=== PATIENT | female | born 1990 | race Caucasian/White ===

== ENCOUNTER 2017-07-18 18:28 | Emergency (ER) | payer BC ==
[~2017-07-18] VITALS: Ht 162.6 cm; Wt 40.0 kg
[2017-07-18 19:41] LABS: URINE BLOOD DIPSTICK NEGATIVE (NEGATIVE); URINE COLOR YELLOW; URINE GLUCOSE - DIPSTICK NEGATIVE (NEGATIVE); URINE KETONE 15 mg/dL (NEGATIVE); URINE LEUK ESTERASE NEGATIVE (NEGATIVE); URINE NITRITE - DIPSTICK NEGATIVE (Negative); URINE PROTEIN - DIPSTICK TRACE mg/dL (NEG-TRACE); URINE SPECIFIC GRAVITY 1.025
[2017-07-18 19:43] LABS: HEMATOCRIT 36.5 % (37.0-47.0); HEMOGLOBIN 12.3 g/dl (12.0-16.0); IMMATURE GRANULOCYTES 0.4 % (0.0-1.0); MEAN CELL VOLUME 84.9 fL CALC (80.0-100.0); MEAN CORPUSCULAR HGB 28.6 pG CALC (26.0-32.0); MEAN CORPUSCULAR HGB CONC 33.7 g/L CALC (32.0-36.0); NEUT# 5.01 thou/uL (2.00-7.15); RED BLOOD COUNT 4.3 mill/uL (4.20-5.60); RED CELL DISTRI WIDTH 14.1 % (11.5-15.5)
[2017-07-18 19:45] LABS: ALBUMIN 4.8 g/dL (3.2-5.0); ALKALINE PHOSPHATASE 61 u/l (38-126); ANION GAP 16 (6-22 (CALC)); BILIRUBIN, TOTAL 0.9 mg/dL (0.0-1.4); BUN 20 mg/dL (7-17); BUN/CREATININE RATIO 37 (12-20 (CALC)); CARBON DIOXIDE 25 mmol/l (22-30); CHLORIDE 103 mmol/l (95-108); CREATININE 0.5 mg/dL (0.5-1.0); GFR > 60 ML/MIN (>=60 (CALC)); GFR FOR AFR.AMER. > 60 ML/MIN (>=60 (CALC)); POTASSIUM 3.8 mmol/l (3.5-5.1); SGOT/AST 19 u/l (14-36); SGPT/ALT 25 u/l (9-52); SODIUM 139 mmol/l (137-146); TOTAL PROTEIN 7.5 g/dL (6.3-8.2)
[2017-07-18 19:46] LABS: URINE BILIRUBIN - DIPSTICK SMALL (NEGATIVE); URINE CLARITY CLEAR
[2017-07-18 21:30] VITALS: BP 108/60
[2017-07-18] MEDS ORDERED: ZOFRAN ODT4 MG PO (21:36)
[2017-07-18] MEDS ORDERED: FIORICET PO (21:36)
== END 2017-07-18 22:00 | disposition home or self-care (01) | DRG 103 ==
LOC: ED 18:28
PROVIDERS: Emergency Medicine
DX: R51 Headache (principal); B34.9 Viral infection, unspecified; R11.10 Vomiting, unspecified; R10.30 Lower abdominal pain, unspecified
CPT/HCPCS: Q9967

== ENCOUNTER 2017-07-21 12:53 | Observation (INO) | payer BC ==
[~2017-07-21] VITALS: Ht 162.6 cm; Wt 40.6 kg
[~2017-07-21 12:53] MED LIST: FIORICET PO; ZOFRAN ODT4 MG PO
[2017-07-21 14:12] LABS: URINE BILIRUBIN - DIPSTICK NEGATIVE (NEGATIVE); URINE BLOOD DIPSTICK NEGATIVE (NEGATIVE); URINE CLARITY CLEAR; URINE COLOR YELLOW; URINE GLUCOSE - DIPSTICK NEGATIVE (NEGATIVE); URINE KETONE NEGATIVE (NEGATIVE); URINE LEUK ESTERASE NEGATIVE (NEGATIVE); URINE NITRITE - DIPSTICK NEGATIVE (Negative); URINE PROTEIN - DIPSTICK NEGATIVE (NEG-TRACE); URINE SPECIFIC GRAVITY 1.015; URINE UROBILINOGEN - DIPSTICK 0.2 E.U./dL (0.2)
[2017-07-21 14:40] LABS: HEMOGLOBIN 11.4 g/dl (12.0-16.0); IMMATURE GRANULOCYTES 0.2 % (0.0-1.0); MEAN CORPUSCULAR HGB 29.2 pG CALC (26.0-32.0); MEAN CORPUSCULAR HGB CONC 33.5 g/L CALC (32.0-36.0); NEUT# 5.52 thou/uL (2.00-7.15); RED BLOOD COUNT 3.91 mill/uL (4.20-5.60); RED CELL DISTRI WIDTH 14.6 % (11.5-15.5)
[2017-07-21 14:51] LABS: ALBUMIN 4.4 g/dL (3.2-5.0); ALKALINE PHOSPHATASE 53 u/l (38-126); ANION GAP 16 (6-22 (CALC)); BILIRUBIN, TOTAL 0.2 mg/dL (0.0-1.4); BUN 17 mg/dL (7-17); BUN/CREATININE RATIO 33 (12-20 (CALC)); CARBON DIOXIDE 25 mmol/l (22-30); CHLORIDE 108 mmol/l (95-108); CREATININE 0.5 mg/dL (0.5-1.0); GFR > 60 ML/MIN (>=60 (CALC)); GFR FOR AFR.AMER. > 60 ML/MIN (>=60 (CALC)); LIPASE 340 u/l (23-300); SGOT/AST 11 u/l (14-36); SGPT/ALT 20 u/l (9-52); SODIUM 144 mmol/l (137-146); TOTAL PROTEIN 6.5 g/dL (6.3-8.2)
[2017-07-21] MEDS ORDERED: VISTARIL 50MG C50 MG PO (16:14)
[2017-07-21 17:01] LABS: BARBITURATES NEGATIVE (NEGATIVE); COCAINE NEGATIVE (NEGATIVE); METHADONE NEGATIVE (NEGATIVE); OXCYCODONE NEGATIVE (NEGATIVE); TETRAHYDROCANNABIONOL POSITIVE (NEGATIVE); TRICYLIC ANTIDEPRESSANTS NEGATIVE (NEGATIVE)
[2017-07-21] MEDS ORDERED: CYMBALTA60 MG PO (17:48)
[2017-07-21] MEDS ORDERED: GABAPENTIN100 MG PO (17:49)
[2017-07-21] MEDS ORDERED: ADDERALL30 MG PO (17:49)
[2017-07-21 18:10] VITALS: BP 105/69
[2017-07-21 19:10] VITALS: BP 104/70
[2017-07-22] VITALS: BP 103/68
[2017-07-22 04:00] VITALS: BP 101/74
[2017-07-22 05:26] LABS: CHOLESTEROL HDL RATIO 2.6 (<4.4 (CALC))
[2017-07-22 07:45] VITALS: BP 96/67
[2017-07-22 16:35] VITALS: BP 127/80
[2017-07-22 19:10] VITALS: BP 112/68
[2017-07-22 23:55] VITALS: BP 94/61
[2017-07-23 05:10] VITALS: BP 99/63
[2017-07-23 05:23] LABS: HEMATOCRIT 35.8 % (37.0-47.0); HEMOGLOBIN 12.1 g/dl (12.0-16.0); MEAN CELL VOLUME 85.2 fL CALC (80.0-100.0); MEAN CORPUSCULAR HGB 28.8 pG CALC (26.0-32.0); MEAN CORPUSCULAR HGB CONC 33.8 g/L CALC (32.0-36.0); RED BLOOD COUNT 4.2 mill/uL (4.20-5.60); RED CELL DISTRI WIDTH 14.5 % (11.5-15.5)
[2017-07-23 05:52] LABS: ANION GAP 17 (6-22 (CALC)); BUN 18 mg/dL (7-17); BUN/CREATININE RATIO 30 (12-20 (CALC)); CARBON DIOXIDE 24 mmol/l (22-30); CHLORIDE 105 mmol/l (95-108); CREATININE 0.6 mg/dL (0.5-1.0); GFR > 60 ML/MIN (>=60 (CALC)); GFR FOR AFR.AMER. > 60 ML/MIN (>=60 (CALC)); MAGNESIUM 2.2 mg/dL (1.6-2.3); POTASSIUM 4.3 mmol/l (3.5-5.1); SODIUM 142 mmol/l (137-146)
[2017-07-23 07:23] VITALS: BP 98/66
[2017-07-23] MEDS ORDERED: LOPRESSOR25 MG PO (10:35)
[2017-07-23 11:07] VITALS: BP 98/61
== END 2017-07-23 12:00 | disposition home or self-care (01) | DRG 310 ==
LOC: ED 12:53 → ED-I 13:58 → ED 17:15 → MS2 17:16 → UNDODEPER 18:12 → MS2 07-23 12:00
PROVIDERS: Family Medicine; Nurse Practitioner Family; ADMIT Internal Medicine; ATTEND Internal Medicine
DX: R00.2 Palpitations (principal); R07.89 Other chest pain; F12.90 Cannabis use, unspecified, uncomplicated; F17.210 Nicotine dependence, cigarettes, uncomplicated; F41.9 Anxiety disorder, unspecified; F43.10 Post-traumatic stress disorder, unspecified; F90.9 Attention-deficit hyperactivity disorder, unspecified type; R94.31 Abnormal electrocardiogram [ECG] [EKG]; Z89.612 Acquired absence of left leg above knee
CPT/HCPCS: G0378

== ENCOUNTER 2017-10-24 12:49 | Emergency (ER) | payer BC ==
[~2017-10-24] VITALS: Ht 162.6 cm; Wt 42.0 kg
[~2017-10-24 12:49] MED LIST changes: +ADDERALL30 MG PO; +CYMBALTA60 MG PO; +GABAPENTIN100 MG PO; +LOPRESSOR25 MG PO; +VISTARIL 50MG C50 MG PO
[2017-10-24 13:58] LABS: HEMATOCRIT 36.7 % (37.0-47.0); HEMOGLOBIN 12.2 g/dl (12.0-16.0); IMMATURE GRANULOCYTES 0.4 % (0.0-1.0); MEAN CELL VOLUME 91.5 fL CALC (80.0-100.0); MEAN CORPUSCULAR HGB 30.4 pG CALC (26.0-32.0); MEAN CORPUSCULAR HGB CONC 33.2 g/L CALC (32.0-36.0); NEUT# 2.62 thou/uL (2.00-7.15); RED BLOOD COUNT 4.01 mill/uL (4.20-5.60)
[2017-10-24 14:04] LABS: URINE BILIRUBIN - DIPSTICK NEGATIVE (NEGATIVE); URINE BLOOD DIPSTICK NEGATIVE (NEGATIVE); URINE COLOR YELLOW; URINE GLUCOSE - DIPSTICK NEGATIVE (NEGATIVE); URINE KETONE NEGATIVE (NEGATIVE); URINE LEUK ESTERASE NEGATIVE (NEGATIVE); URINE NITRITE - DIPSTICK NEGATIVE (Negative); URINE PROTEIN - DIPSTICK NEGATIVE (NEG-TRACE); URINE UROBILINOGEN - DIPSTICK 0.2 E.U./dL (0.2)
[2017-10-24 14:06] LABS: URINE CLARITY CLOUDY
[2017-10-24 14:08] LABS: BARBITURATES NEGATIVE (NEGATIVE); COCAINE NEGATIVE (NEGATIVE); METHADONE NEGATIVE (NEGATIVE); OXCYCODONE POSITIVE (NEGATIVE); TETRAHYDROCANNABIONOL POSITIVE (NEGATIVE); TRICYLIC ANTIDEPRESSANTS NEGATIVE (NEGATIVE)
[2017-10-24 14:11] LABS: ALBUMIN 4.2 g/dL (3.2-5.0); ALKALINE PHOSPHATASE 41 u/l (38-126); ANION GAP 9 (6-22 (CALC)); BILIRUBIN, TOTAL 0.5 mg/dL (0.0-1.4); BUN 18 mg/dL (7-17); BUN/CREATININE RATIO 45 (12-20 (CALC)); CARBON DIOXIDE 29 mmol/l (22-30); CHLORIDE 104 mmol/l (95-108); CREATININE 0.4 mg/dL (0.5-1.0); GFR > 60 ML/MIN (>=60 (CALC)); GFR FOR AFR.AMER. > 60 ML/MIN (>=60 (CALC)); POTASSIUM 4.2 mmol/l (3.5-5.1); SGPT/ALT 35 u/l (9-52); SODIUM 138 mmol/l (137-146)
[2017-10-24 14:15] LABS: SGOT/AST 20 u/l (14-36)
[2017-10-24 14:42] LABS: TSH, 3RD GENERATION 0.89 uIU/mL (0.47 - 4.68)
[2017-10-24] MEDS ORDERED: CIPRO HC PO (18:46)
[2017-10-24] MEDS ORDERED: PYRIDIUM200 MG PO (18:46)
[2017-10-24 19:02] VITALS: BP 101/66
== END 2017-10-24 19:09 | disposition home or self-care (01) | DRG 392 ==
LOC: ED 12:49
PROVIDERS: Emergency Medicine
DX: R10.30 Lower abdominal pain, unspecified (principal); F17.210 Nicotine dependence, cigarettes, uncomplicated; R53.1 Weakness; R51 Headache
CPT/HCPCS: Q9967

== ENCOUNTER 2017-11-19 13:39 | Emergency (ER) | payer BC ==
[~2017-11-19] VITALS: Ht 162.6 cm; Wt 44.0 kg
[~2017-11-19 13:39] MED LIST changes: +CIPRO HC PO; +PYRIDIUM200 MG PO
[2017-11-19] MEDS ORDERED: MUPIROCIN21 TOP (14:06)
[2017-11-19] MEDS ORDERED: DOXYCYCLINE100 MG PO (14:06)
[2017-11-19 14:10] VITALS: BP 107/74
== END 2017-11-19 14:20 | disposition home or self-care (01) | DRG 607 ==
LOC: ED 13:39
PROC: 0H9AXZZ Drainage of Inguinal Skin, External Approach (ICD-10-PCS; principal; 2017-11-19)
DX: L73.9 Follicular disorder, unspecified (principal); F32.9 Major depressive disorder, single episode, unspecified; E07.9 Disorder of thyroid, unspecified; F17.210 Nicotine dependence, cigarettes, uncomplicated; B95.62 Methicillin resistant Staphylococcus aureus infection as the cause of diseases classified elsewhere

== ENCOUNTER 2017-12-23 15:45 | Emergency (ER) | payer OTHER ==
[~2017-12-23] VITALS: Ht 162.6 cm; Wt 45.5 kg
[~2017-12-23 15:45] MED LIST changes: +DOXYCYCLINE100 MG PO; +MUPIROCIN21 TOP
[2017-12-23 16:44] LABS: HEMATOCRIT 35.9 % (37.0-47.0); HEMOGLOBIN 11.9 g/dl (12.0-16.0); IMMATURE GRANULOCYTES 0.5 % (0.0-5.0); MEAN CELL VOLUME 89.8 fL CALC (80.0-100.0); MEAN CORPUSCULAR HGB 29.8 pG CALC (26.0-32.0); MEAN CORPUSCULAR HGB CONC 33.1 g/L CALC (32.0-36.0); NEUT# 4.76 thou/uL (2.00-7.15); RED CELL DISTRI WIDTH 14.1 % (11.5-15.5)
[2017-12-23 17:01] LABS: ALBUMIN 4.3 g/dL (3.2-5.0); ANION GAP 15 (6-22 (CALC)); BILIRUBIN, TOTAL 0.5 mg/dL (0.0-1.4); BUN 14 mg/dL (7-17); BUN/CREATININE RATIO 29 (12-20 (CALC)); CARBON DIOXIDE 29 mmol/l (22-30); CHLORIDE 103 mmol/l (95-108); CREATININE 0.5 mg/dL (0.5-1.0); GFR > 60 ML/MIN (>=60 (CALC)); GFR FOR AFR.AMER. > 60 ML/MIN (>=60 (CALC)); POTASSIUM 4.1 mmol/l (3.5-5.1); SGOT/AST 14 u/l (14-36); SGPT/ALT 38 u/l (9-52); SODIUM 142 mmol/l (137-146); TOTAL PROTEIN 6.8 g/dL (6.3-8.2)
[2017-12-23 17:03] LABS: ALKALINE PHOSPHATASE 77 u/l (38-126)
[2017-12-23 19:24] LABS: URINE BILIRUBIN - DIPSTICK NEGATIVE (NEGATIVE); URINE BLOOD DIPSTICK NEGATIVE (NEGATIVE); URINE COLOR YELLOW; URINE GLUCOSE - DIPSTICK NEGATIVE (NEGATIVE); URINE KETONE NEGATIVE (NEGATIVE); URINE LEUK ESTERASE NEGATIVE (NEGATIVE); URINE NITRITE - DIPSTICK NEGATIVE (Negative); URINE PROTEIN - DIPSTICK NEGATIVE (NEG-TRACE); URINE UROBILINOGEN - DIPSTICK 0.2 E.U./dL (0.2)
[2017-12-23 19:26] LABS: URINE CLARITY CLEAR
[2017-12-23] MEDS ORDERED: ULTRAM50 M1 PO (19:30)
[2017-12-23 19:39] LABS: BARBITURATES NEGATIVE (NEGATIVE); COCAINE NEGATIVE (NEGATIVE); METHADONE NEGATIVE (NEGATIVE); OXCYCODONE NEGATIVE (NEGATIVE); TETRAHYDROCANNABIONOL POSITIVE (NEGATIVE); TRICYLIC ANTIDEPRESSANTS NEGATIVE (NEGATIVE)
[2017-12-23 19:41] VITALS: BP 106/56
== END 2017-12-23 22:13 | disposition home or self-care (01) | DRG 556 ==
LOC: ED 15:45
PROVIDERS: Emergency Medicine
DX: M79.1 Myalgia (principal); F17.210 Nicotine dependence, cigarettes, uncomplicated; R50.9 Fever, unspecified; M54.5 Low back pain; Z89.612 Acquired absence of left leg above knee

== ENCOUNTER 2019-02-02 09:33 | Emergency (ER) | payer OTHER ==
[~2019-02-02] VITALS: Ht 162.6 cm; Wt 47.0 kg
[~2019-02-02 09:33] MED LIST changes: +ULTRAM50 M1 PO
[2019-02-02 11:09] LABS: HEMATOCRIT 33.7 % (37.0-47.0); MEAN CELL VOLUME 88.7 fL CALC (80.0-100.0); MEAN CORPUSCULAR HGB 28.9 pG CALC (26.0-32.0); MEAN CORPUSCULAR HGB CONC 32.6 g/L CALC (32.0-36.0); NEUT# 8.08 thou/uL (2.00-7.15); RED BLOOD COUNT 3.8 mill/uL (4.20-5.60); RED CELL DISTRI WIDTH 15.9 % (11.5-15.5)
[2019-02-02 11:25] LABS: INTERNATIONAL NORMALIZED RATIO 1.1 RATIO (0.7-1.3)
[2019-02-02 11:30] LABS: ALBUMIN 4.2 g/dL (3.2-5.0); ALKALINE PHOSPHATASE 46 u/l (38-126); ANION GAP 14 (6-22 (CALC)); BILIRUBIN, TOTAL 0.5 mg/dL (0.0-1.4); BUN 20 mg/dL (7-17); BUN/CREATININE RATIO 53 (12-20 (CALC)); CARBON DIOXIDE 24 mmol/l (22-30); CHLORIDE 103 mmol/l (95-108); CREATININE 0.4 mg/dL (0.5-1.0); ETHYL ALCOHOL 0 mg/dl (0-30); GFR > 60 ML/MIN (>=60 (CALC)); GFR FOR AFR.AMER. > 60 ML/MIN (>=60 (CALC)); LIPASE 79 u/l (23-300); SGOT/AST 12 u/l (14-36); SODIUM 137 mmol/l (137-146); TOTAL PROTEIN 6.6 g/dL (6.3-8.2)
[2019-02-02 11:49] LABS: URINE BILIRUBIN - DIPSTICK NEGATIVE (NEGATIVE); URINE BLOOD DIPSTICK NEGATIVE (NEGATIVE); URINE COLOR YELLOW; URINE GLUCOSE - DIPSTICK NEGATIVE (NEGATIVE); URINE KETONE NEGATIVE (NEGATIVE); URINE LEUK ESTERASE NEGATIVE (NEGATIVE); URINE NITRITE - DIPSTICK NEGATIVE (Negative); URINE PROTEIN - DIPSTICK NEGATIVE (NEG-TRACE); URINE SPECIFIC GRAVITY 1.015; URINE UROBILINOGEN - DIPSTICK 0.2 E.U./dL (0.2)
[2019-02-02 11:52] LABS: COCAINE NEGATIVE (NEGATIVE); METHADONE NEGATIVE (NEGATIVE); TETRAHYDROCANNABIONOL NEGATIVE (NEGATIVE)
[2019-02-02 11:53] LABS: BARBITURATES NEGATIVE (NEGATIVE); OXCYCODONE NEGATIVE (NEGATIVE); TRICYLIC ANTIDEPRESSANTS NEGATIVE (NEGATIVE)
[2019-02-02 12:44] VITALS: BP 115/80
== END 2019-02-02 13:10 | disposition home or self-care (01) | DRG 312 ==
LOC: ED 09:33
DX: R55 Syncope and collapse (principal); T43.015A Adverse effect of tricyclic antidepressants, initial encounter; S00.03XA Contusion of scalp, initial encounter; F17.200 Nicotine dependence, unspecified, uncomplicated; W18.39XA Other fall on same level, initial encounter; Y92.89 Other specified places as the place of occurrence of the external cause

== ENCOUNTER 2020-01-24 06:29 | Observation (INO) | payer OTHER ==
[~2020-01-24] VITALS: Ht 162.6 cm; Wt 52.3 kg
--- NOTE | 2020-01-24 06:35 | NUR ---
PATIENT TO ROOM 10 VIA WHEELCHAIR. PATIENT TRANSFERRED HERSELF ONTO STRETCHER. TRIAGE COMPLETED AT BEDSIDE. PATIENT INSTRUCTED NOT TO DRINK ANY MORE WATER. VERBALIZED UNDERSTANDING.
[2020-01-24] MEDS ORDERED: SIMVASTATIN20 MG PO (06:44)
--- NOTE | 2020-01-24 07:00 | NUR ---
PT WRETCHING/VOMITING CLEAR FLUIDS. AT BEDSIDE. IV STARTED. LABS DRAWN. ZOFRAN AND FLUIDS GIVEN. DENIES ABD PAIN. HURTS FROM VOMITING.
--- NOTE | 2020-01-24 07:04 | NUR ---
REPORT TO SUSAN SUN
[2020-01-24 07:23] LABS: HEMOGLOBIN 12.2 g/dl (12.0-16.0); IMMATURE GRANULOCYTES 0.4 % (0.0-5.0); MEAN CELL VOLUME 84.4 fL CALC (80.0-100.0); MEAN CORPUSCULAR HGB 27.1 pG CALC (26.0-32.0); MEAN CORPUSCULAR HGB CONC 32.1 g/dL CAL (32.0-36.0); NEUT# 11.66 thou/uL (2.00-7.15); RED BLOOD COUNT 4.5 mill/uL (4.20-5.60); RED CELL DISTRI WIDTH 13.8 % (11.5-15.5)
--- NOTE | 2020-01-24 07:29 | NUR ---
PATIENT RESTING ADDITIONAL ZOFRAN GIVEN PER MD ORDER AND IS EFFECTIVE NAUSEA DECREASED. MD NOTIFIED. PATIENT UNABLE TO URINATE AT THIS TIME FLUIDS INFUSING
[2020-01-24 07:33] LABS: AMYLASE 68 u/l (30-110); ANION GAP 21 (6-22 (CALC)); BILIRUBIN, TOTAL 0.6 mg/dL (0.0-1.4); BUN 15 mg/dL (7-17); BUN/CREATININE RATIO 29 (12-20 (CALC)); CARBON DIOXIDE 26 mmol/l (22-30); CHLORIDE 97 mmol/l (95-108); CREATININE 0.5 mg/dL (0.5-1.0); GFR > 60 ML/MIN (>=60 (CALC)); GFR FOR AFR.AMER. > 60 ML/MIN (>=60 (CALC)); LIPASE 66 u/l (23-300); POTASSIUM 4.2 mmol/l (3.5-5.1); SODIUM 140 mmol/l (137-146)
[2020-01-24 07:42] LABS: ALBUMIN 5.7 g/dL (3.2-5.0); ALKALINE PHOSPHATASE 94 u/l (38-126); MYOGLOBIN 53 ng/mL (0 - 62); SGOT/AST 22 u/l (14-36)
[2020-01-24 09:31] LABS: URINE BILIRUBIN - DIPSTICK NEGATIVE (NEGATIVE); URINE BLOOD DIPSTICK NEGATIVE (NEGATIVE); URINE COLOR YELLOW; URINE GLUCOSE - DIPSTICK NEGATIVE (NEGATIVE); URINE KETONE NEGATIVE (NEGATIVE); URINE LEUK ESTERASE NEGATIVE (NEGATIVE); URINE NITRITE - DIPSTICK NEGATIVE (Negative); URINE PROTEIN - DIPSTICK NEGATIVE (NEG-TRACE); URINE SPECIFIC GRAVITY 1.015; URINE UROBILINOGEN - DIPSTICK 0.2 E.U./dL (0.2)
--- NOTE | 2020-01-24 10:00 | NUR ---
RECIEVED REPORT FROM CORINNE DAVIS
[2020-01-24] MEDS ORDERED: OXYCODONE15 MG PO (10:02)
[2020-01-24] MEDS ORDERED: VIVELLE-DO0.05 MG/24 TOP (10:02)
[2020-01-24] MEDS ORDERED: WELLBUTRIN XL150 MG PO (10:03)
[2020-01-24] MEDS ORDERED: DESIPRAMINE PO (10:03)
[2020-01-24] MEDS ORDERED: CARAFATE1 GM PO (10:03)
[2020-01-24] MEDS ORDERED: TRAZODONE50 MG PO (10:04)
[2020-01-24] MEDS ORDERED: PRILOSEC20 MG/CAP PO (10:04)
--- NOTE | 2020-01-24 10:37 | NUR ---
ATTEMPT MADE TO CALL ED FOR REPORT, NO ANSWER.
--- NOTE | 2020-01-24 10:53 | NUR ---
GAVE REPORT TO HARRY
--- NOTE | 2020-01-24 11:00 | NUR ---
PT TRANSPORTED TO [facility] SURG STABLE AND IN NO DISTRESS. CARE ASSUMED TO HARRY
--- NOTE | 2020-01-24 11:05 | NUR ---
PT ARRIVED TO MS VIA STRETCHER ACCOMPANIED BY CARSON DAVIS. A&O X3. NO DISTRESS NOTED. PT C/O OF SHARP ABD PAIN 12/25. LIMITED EYE CONTACT MADE BY PT BUT COOPERATIVE. X1 EPISODE OF 200 CC OF YELLOW VOMIT OBSERVED X1. PT STATES THAT SHE BEGAN FEELING NAUSEOUS AND HAS BEEN VOMITING AFTER EATING DINNER LAST NIGHT. ORIENTED PT TO ROOM. [facility] OFFERED BUT REFUSED. ASSESSMENT COMPLETED. DISCUSSED POC. CALL LIGHT IN REACH. CONTINUE TO MONITOR.
--- NOTE | 2020-01-24 14:20 | NUR ---
PT C/O OF NAUSEA, PT REPORTS X2 EPISODES OF VOMITING. ZOFRAN GIVEN. CONTINUE TO MONITOR.
[2020-01-24 15:05] VITALS: BP 111/69
[2020-01-24 19:00] VITALS: BP 94/62
--- NOTE | 2020-01-24 19:00 | NUR ---
RECEIEVED REPORT FROM ALBERTO PATIENT APPEARS TO BE SLEEPING WITH EYES CLOSED, NOT IN DISTRESS CALL LIGHT AT REACH.
--- NOTE | 2020-01-24 19:52 | NUR ---
PATIENT C/O OF NAUSEA, PRN ZOFRAN GIVEN AT THIS TIME.
--- NOTE | 2020-01-24 22:00 | NUR ---
PATIENT ALERT ORIENTED ABLE TO MAKE NEEDS KNONW, WITH ONGOING IV NS @ 150CC/HR INFUSING WELL ON RAC, LB, 01/23, ACTIVE BOWEL SOUNDS ON ALL QUADRANTS, C/O ON ABDOMEN PS 12/25, WILL MEDICATE.
--- NOTE | 2020-01-25 00:05 | NUR ---
PATIENT APPEARS TO BE SLEEPING WITH EYS CLOSED, BREATHOING EVEN UNLABORED CALL LIGHT AT REACH.
--- NOTE | 2020-01-25 04:30 | NUR ---
PATIENT VOMITIING CLEAR YELLOWISH IN COLOR, PATIENT STATED SHE CANT AVOID DRINKING WATER BECAUSE SHE FEELS THIRSTY, PRN ZOFRAN GIVEN.
[2020-01-25 04:45] VITALS: BP 141/88
[2020-01-25 05:23] LABS: HEMATOCRIT 36.6 % (37.0-47.0); HEMOGLOBIN 11.4 g/dl (12.0-16.0); IMMATURE GRANULOCYTES 0.2 % (0.0-5.0); MEAN CELL VOLUME 85.7 fL CALC (80.0-100.0); MEAN CORPUSCULAR HGB 26.7 pG CALC (26.0-32.0); MEAN CORPUSCULAR HGB CONC 31.1 g/dL CAL (32.0-36.0); NEUT# 5.34 thou/uL (2.00-7.15); RED BLOOD COUNT 4.27 mill/uL (4.20-5.60)
[2020-01-25 05:48] LABS: ALBUMIN 4.7 g/dL (3.2-5.0); ALKALINE PHOSPHATASE 79 u/l (38-126); BILIRUBIN, TOTAL 0.6 mg/dL (0.0-1.4); BUN 4 mg/dL (7-17); BUN/CREATININE RATIO 7 (12-20 (CALC)); CARBON DIOXIDE 26 mmol/l (22-30); CHLORIDE 105 mmol/l (95-108); CREATININE 0.5 mg/dL (0.5-1.0); GFR > 60 ML/MIN (>=60 (CALC)); GFR FOR AFR.AMER. > 60 ML/MIN (>=60 (CALC)); SGOT/AST 29 u/l (14-36); SODIUM 140 mmol/l (137-146); TOTAL PROTEIN 7.3 g/dL (6.3-8.2)
[2020-01-25 05:50] LABS: ANION GAP 12 (6-22 (CALC)); MAGNESIUM 1.6 mg/dL (1.6-2.3); POTASSIUM 3.1 mmol/l (3.5-5.1)
--- NOTE | 2020-01-25 07:00 | NUR ---
REPORT RECEIVED FROM SUSAN GARDINER;PT APPEARS TO BE SLEEPING IN SEMI FOWLERS POSITION;NO S/S OF DISTRESS NOTED;RESPIRATIONS EVEN AND UNLABORED ON RA;IV SIE PATENT INFUSING NS PER ORDER;ALL SAFETY PRECAUTIONS REINFORCED WITH BED IN THE LOWEST POSITION AND CALL LIGHT IN REACH;WILL CONTINUE TO MONITOR
[2020-01-25 07:55] VITALS: BP 108/66
--- NOTE | 2020-01-25 08:17 | NUR ---
AT BEDSIDE DISCUSSING POC WITH PT.
--- NOTE | 2020-01-25 08:45 | NUR ---
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
[2020-01-25] MEDS ORDERED: ZOFRAN4 MG/TAB PO (10:28)
--- NOTE | 2020-01-25 11:55 | NUR ---
PT RESTING IN SEMI FOWLERS POSITION;RESPIRATIONS EVEN AND UNLABORED ON RA;PT DENIES ANY CURRENT NEEDS AT THIS TIME;ALL DISCHARGE INSTRUCTIONS PROVIDED WITH RX FOR ZOFRAN;PT ENCOURAGED TO F/U WITH PCP,PAIN MANAGEMENT AND MEDICAL MARIJUANA MD WITHIN THE NEXT WEEK,CONTINUE HOME MEDICATIONS DIRECTED,USE PEDIALTYE AND RITA ANATOLY TO ASSIST IN N/V AND INCREASE DIET TOLERATED;PT VERBALIZES UNDERSTANDING AND DENIES ANY ADDITIONAL NEEDS;IV SITE REMOVED WITH CATHETER INTACT;WHEELCHAIR TO BE PROVIDED FR D/C HOME;FAMILY TO TRANSPORT PT HOME;WILL CONTINUE TO MONITOR
--- NOTE | 2020-01-25 14:34 | NUR ---
Discharge instructions given. Patient verbalizes understanding of same. Discharged in stable condition via Wheelchair to Home with family. All belongings sent with pt. PT TRANSPORTED TO [facility] IN STABLE CONDITION VIA WHEELCHAIR ACCOMPANIED JUAN CARLOS BOWDEN FOR D/C HOME.ALL BELONGINGS LEFT WITH PT.
== END 2020-01-25 14:33 | disposition home or self-care (01) | DRG 392 ==
LOC: ED 06:29 → ED-I 09:12 → ED 09:23 → MS2 09:24
PROVIDERS: Emergency Medicine; Nurse Practitioner; ADMIT Internal Medicine; ATTEND Internal Medicine
DX: K52.9 Noninfective gastroenteritis and colitis, unspecified (principal); E87.2 Acidosis; E87.6 Hypokalemia; G35 Multiple sclerosis; G89.4 Chronic pain syndrome; K29.70 Gastritis, unspecified, without bleeding; F43.10 Post-traumatic stress disorder, unspecified; M16.0 Bilateral primary osteoarthritis of hip; F17.200 Nicotine dependence, unspecified, uncomplicated; Z89.612 Acquired absence of left leg above knee; Z79.891 Long term (current) use of opiate analgesic; Z79.899 Other long term (current) drug therapy; Z86.73 Personal history of transient ischemic attack (TIA), and cerebral infarction without residual deficits; Z20.828 Contact with and (suspected) exposure to other viral communicable diseases
CPT/HCPCS: G0378; J1650; Q9967; S0164

== ENCOUNTER 2020-02-22 09:32 | Emergency (ER) | payer OTHER, MEDICAID ==
[~2020-02-22] VITALS: Ht 162.6 cm; Wt 50.0 kg
[~2020-02-22 09:32] MED LIST changes: +CARAFATE1 GM PO; +DESIPRAMINE PO; +OXYCODONE15 MG PO; +PRILOSEC20 MG/CAP PO; +SIMVASTATIN20 MG PO; +TRAZODONE50 MG PO; +VIVELLE-DO0.05 MG/24 TOP; +WELLBUTRIN XL150 MG PO; +ZOFRAN4 MG/TAB PO
[2020-02-22 10:40] VITALS: BP 124/85
[2020-02-22 10:59] LABS: URINE BILIRUBIN - DIPSTICK NEGATIVE (NEGATIVE); URINE BLOOD DIPSTICK NEGATIVE (NEGATIVE); URINE COLOR YELLOW; URINE GLUCOSE - DIPSTICK NEGATIVE (NEGATIVE); URINE KETONE NEGATIVE (NEGATIVE); URINE LEUK ESTERASE NEGATIVE (NEGATIVE); URINE NITRITE - DIPSTICK NEGATIVE (Negative); URINE PROTEIN - DIPSTICK NEGATIVE (NEG-TRACE); URINE SPECIFIC GRAVITY 1.025; URINE UROBILINOGEN - DIPSTICK 0.2 E.U./dL (0.2)
== END 2020-02-22 10:45 | disposition left against medical advice (07) | DRG 392 ==
LOC: ED 09:32
PROVIDERS: Family Medicine
DX: R10.12 Left upper quadrant pain (principal); R10.32 Left lower quadrant pain; R19.7 Diarrhea, unspecified; R11.0 Nausea; G35 Multiple sclerosis; F17.200 Nicotine dependence, unspecified, uncomplicated; Z86.73 Personal history of transient ischemic attack (TIA), and cerebral infarction without residual deficits; Z89.612 Acquired absence of left leg above knee; Z91.19 Patient's noncompliance with other medical treatment and regimen

== ENCOUNTER 2020-03-14 21:13 | Observation (INO) | payer OTHER, MEDICAID ==
[~2020-03-14] VITALS: Ht 162.6 cm; Wt 49.1 kg
--- NOTE | 2020-03-14 21:23 | NUR ---
PATIENT TO TREATMENT AREA AND TO BATHROOM TO COLLECT URINE SAMPLE.
--- NOTE | 2020-03-14 21:30 | NUR ---
TRIAGE COMPLETED AT BEDSIDE.
[2020-03-14] MEDS ORDERED: OXYCODONE HCL10 MG PO (21:52)
--- NOTE | 2020-03-14 21:58 | NUR ---
IV ACESS OBTIANED URINE SPECIMEN AND LAB WORK SENT PT MEDICATED FOR PAIN AND NAUSEA AND IVF IFNUSING ORDERED,FRIEND AT BEDSIDE WITH PATIENT.
[2020-03-14 22:08] LABS: HEMATOCRIT 39.2 % (37.0-47.0); HEMOGLOBIN 12.9 g/dl (12.0-16.0); IMMATURE GRANULOCYTES 0.2 % (0.0-5.0); MEAN CELL VOLUME 85.2 fL CALC (80.0-100.0); MEAN CORPUSCULAR HGB CONC 32.9 g/dL CAL (32.0-36.0); NEUT# 8.67 thou/uL (2.00-7.15); RED BLOOD COUNT 4.6 mill/uL (4.20-5.60); RED CELL DISTRI WIDTH 15.7 % (11.5-15.5); URINE BLOOD DIPSTICK TRACE-LYSED (NEGATIVE); URINE COLOR YELLOW; URINE GLUCOSE - DIPSTICK NEGATIVE (NEGATIVE); URINE KETONE >=80 mg/dL (NEGATIVE); URINE LEUK ESTERASE NEGATIVE (NEGATIVE); URINE NITRITE - DIPSTICK NEGATIVE (Negative); URINE PROTEIN - DIPSTICK TRACE mg/dL (NEG-TRACE); URINE SPECIFIC GRAVITY >=1.030; URINE UROBILINOGEN - DIPSTICK 0.2 E.U./dL (0.2)
[2020-03-14 22:09] LABS: URINE BILIRUBIN - DIPSTICK SMALL (NEGATIVE)
--- NOTE | 2020-03-14 22:58 | NUR ---
ICE CHIPS OFFERED
[2020-03-14 23:29] LABS: ALBUMIN 4.9 g/dL (3.2-5.0); ALKALINE PHOSPHATASE 88 u/l (38-126); AMYLASE 68 u/l (30-110); BUN 13 mg/dL (7-17); BUN/CREATININE RATIO 27 (12-20 (CALC)); CARBON DIOXIDE 23 mmol/l (22-30); CHLORIDE 106 mmol/l (95-108); CREATININE 0.5 mg/dL (0.5-1.0); GFR > 60 ML/MIN (>=60 (CALC)); GFR FOR AFR.AMER. > 60 ML/MIN (>=60 (CALC)); LIPASE 39 u/l (23-300); SGOT/AST 27 u/l (14-36); SODIUM 142 mmol/l (137-146)
[2020-03-14 23:31] LABS: ANION GAP 17 (6-22 (CALC)); POTASSIUM 3.9 mmol/l (3.5-5.1)
--- NOTE | 2020-03-14 23:33 | NUR ---
PT MEDICATED FOR PAINA ND NAUSEA AGAIN, WILL CONTINUE TO MONITOR.
--- NOTE | 2020-03-15 00:02 | NUR ---
PT AWARE OF PLANNED ADMISSION, NO NEW COMPLAINTS OFFERED.
--- NOTE | 2020-03-15 00:57 | NUR ---
PT AWARRE OF PLANNED ADMISSION, NO NEW COMPLAINTS OFFERED, CALL CRUZ WITHIN REACH.
--- NOTE | 2020-03-15 01:05 | NUR ---
REPORT CALLED TO MARIXA DAVIS ON MED SURG
--- NOTE | 2020-03-15 01:15 | NUR ---
PT TRASNPORTED TO MED SURG VIA [employer] ALL BELINGINS SENT WITH PT INCLUDING PERSONAL CRUUTCHES.
[2020-03-15 01:27] VITALS: BP 91/55
--- NOTE | 2020-03-15 01:39 | NUR ---
[id number]- PT. ARRIVED TO THE FLOOR VIA W/C ACCOMPANIED BY ER NURSEEDWIGE. PT. ABLE TO AMBULATE TO BED WITH CRUTCHES; ORIENTED TO CALL LIGHT, ROOM, AND POC; VERBALIZES UNDERSTANDING; PT. C/O ABDOMINAL PAIN (BURNING AND SHARP) 12/25; CALLED ER PHYSICIAN AND NOTIFIED HIM OF THIS WELL CURRENT B/P; NEW ORDERS RECEIVED AND TO BE CARRIED OUT. PT. ENCOURAGED TO CALL FOR ANY NEEDS. CALL LIGHT IS IN REACH. WILL CONTINUE TO MONITOR.
[2020-03-15 03:57] VITALS: BP 111/67
--- NOTE | 2020-03-15 04:46 | NUR ---
PT. C/O NAUSEA; MEDICATED WITH ORDERED ONE TIME DOSE OF PROTONIX AND PHENEGAN; WILL REASSESS.
[2020-03-15 08:00] VITALS: BP 102/69
--- NOTE | 2020-03-15 08:00 | NUR ---
ASSESSMENT IS COMPLETED: IV SITE IS FREE FROM REDNESS OR EDEMA. HR IS REG,PULSES ARE STRONG X3, ABD IS SOFT WITH ACTIVE BS. BREATH SOUNDS ARE CLEAR, BILATERALLY,
[2020-03-15] MEDS ORDERED: ZOFRAN4 MG/TAB PO (10:56)
--- NOTE | 2020-03-15 12:30 | NUR ---
PT HAS BEEN RELAXING IN BED WITH NO DISTRESS NTOED. IV SITE IS FREE FROM REDNESS OR EDEMA.
--- NOTE | 2020-03-15 15:00 | NUR ---
PT RECIEVED DISCHARGE INSTRUCTIONS AND VERBALIZED UNDERSTANDING. IV SITE DISCONTINUED CATHETER INTACT. NO REDNESS O REDEMA.
--- NOTE | 2020-03-15 15:00 | NUR ---
IV FLUID COMPLETED: 1261
[2020-03-15 15:10] VITALS: BP 96/62
--- NOTE | 2020-03-15 15:20 | NUR ---
Discharge instructions given. Patient verbalizes understanding of same. Discharged in stable condition via Wheelchair to Home with family. All belongings sent with pt.
== END 2020-03-15 15:08 | disposition home or self-care (01) | DRG 392 ==
LOC: ED 21:13 → ED-I 23:42 → ED 03-15 00:05 → MS2 03-15 00:06
PROVIDERS: Emergency Medicine; ADMIT Internal Medicine; ATTEND Internal Medicine
DX: K52.9 Noninfective gastroenteritis and colitis, unspecified (principal); G35 Multiple sclerosis; F17.210 Nicotine dependence, cigarettes, uncomplicated; Z86.73 Personal history of transient ischemic attack (TIA), and cerebral infarction without residual deficits; Z89.612 Acquired absence of left leg above knee; Z20.828 Contact with and (suspected) exposure to other viral communicable diseases
CPT/HCPCS: G0378; S0164

== ENCOUNTER 2020-05-23 09:25 | Emergency (ER) | payer OTHER, MEDICAID ==
[~2020-05-23] VITALS: Ht 162.6 cm; Wt 52.0 kg
[~2020-05-23 09:25] MED LIST changes: +OXYCODONE HCL10 MG PO
[2020-05-23] MEDS ORDERED: SIMVASTATIN20 MG PO (09:48)
[2020-05-23 10:14] LABS: HEMATOCRIT 40.4 % (37.0-47.0); HEMOGLOBIN 13.2 g/dl (12.0-16.0); IMMATURE GRANULOCYTES 0.5 % (0.0-5.0); MEAN CELL VOLUME 86.5 fL CALC (80.0-100.0); MEAN CORPUSCULAR HGB 28.3 pG CALC (26.0-32.0); MEAN CORPUSCULAR HGB CONC 32.7 g/dL CAL (32.0-36.0); NEUT# 7.24 thou/uL (2.00-7.15); RED BLOOD COUNT 4.67 mill/uL (4.20-5.60); RED CELL DISTRI WIDTH 14.5 % (11.5-15.5)
[2020-05-23 10:29] LABS: ANION GAP 19 (6-22 (CALC)); BUN 18 mg/dL (7-17); BUN/CREATININE RATIO 25 (12-20 (CALC)); CARBON DIOXIDE 21 mmol/l (22-30); CHLORIDE 102 mmol/l (95-108); CREATININE 0.7 mg/dL (0.5-1.0); GFR > 60 ML/MIN (>=60 (CALC)); GFR FOR AFR.AMER. > 60 ML/MIN (>=60 (CALC)); POTASSIUM 4.3 mmol/l (3.5-5.1); SODIUM 138 mmol/l (137-146)
[2020-05-23 10:35] LABS: URINE BILIRUBIN - DIPSTICK NEGATIVE (NEGATIVE); URINE BLOOD DIPSTICK NEGATIVE (NEGATIVE); URINE COLOR YELLOW; URINE GLUCOSE - DIPSTICK NEGATIVE (NEGATIVE); URINE KETONE TRACE mg/dL (NEGATIVE); URINE LEUK ESTERASE NEGATIVE (NEGATIVE); URINE NITRITE - DIPSTICK NEGATIVE (Negative); URINE PH 6.5 (4.5-8.0); URINE PROTEIN - DIPSTICK NEGATIVE (NEG-TRACE); URINE SPECIFIC GRAVITY 1.025; URINE UROBILINOGEN - DIPSTICK 0.2 E.U./dL (0.2)
[2020-05-23] MEDS ORDERED: EPIPEN 2-P0.3 MG/0.3 IM (12:47)
[2020-05-23] MEDS ORDERED: [UNRECOGNIZED DRUG - OTHER] PO (12:47)
[2020-05-23] MEDS ORDERED: DIFLUCAN150 MG PO (12:47)
[2020-05-23 18:53] VITALS: BP 100/60
--- NOTE | 2020-05-24 11:22 | NUR ---
CALLED OFFICE AT [phone] WHO WOULD LIKE THE PATIENT TO FOLLOW UP WITH [facility].
== END 2020-05-23 19:25 | disposition home or self-care (01) | DRG 607 ==
LOC: ED 09:25
PROVIDERS: Family Medicine
DX: R22.0 Localized swelling, mass and lump, head (principal); T36.1X5A Adverse effect of cephalosporins and other beta-lactam antibiotics, initial encounter; L73.9 Follicular disorder, unspecified; B37.3 Candidiasis of vulva and vagina; F41.9 Anxiety disorder, unspecified; F17.210 Nicotine dependence, cigarettes, uncomplicated; Z86.14 Personal history of Methicillin resistant Staphylococcus aureus infection; Z88.9 Allergy status to unspecified drugs, medicaments and biological substances
CPT/HCPCS: J0171; Q9967

== ENCOUNTER 2020-07-10 08:03 | Observation (INO) | payer OTHER, MEDICAID ==
[~2020-07-10] VITALS: Ht 162.6 cm; Wt 46.0 kg
[~2020-07-10 08:03] MED LIST changes: +DIFLUCAN150 MG PO; +EPIPEN 2-P0.3 MG/0.3 IM; +[UNRECOGNIZED DRUG - OTHER] PO
--- NOTE | 2020-07-10 08:05 | NUR ---
PPATIETN TO ROOM VIA WHEELCHAIR AND PHYSICIAN AT BEDSIDE FOR EVAL
[2020-07-10 08:44] LABS: HEMATOCRIT 38.8 % (37.0-47.0); HEMOGLOBIN 12.8 g/dl (12.0-16.0); IMMATURE GRANULOCYTES 0.3 % (0.0-5.0); MEAN CELL VOLUME 88.4 fL CALC (80.0-100.0); MEAN CORPUSCULAR HGB 29.2 pG CALC (26.0-32.0); NEUT# 9.47 thou/uL (2.00-7.15); RED BLOOD COUNT 4.39 mill/uL (4.20-5.60); RED CELL DISTRI WIDTH 14.8 % (11.5-15.5)
--- NOTE | 2020-07-10 09:00 | NUR ---
PATIENT CONTINUES TO VOMIT NOTIFIED
[2020-07-10 09:05] LABS: ALBUMIN 4.9 g/dL (3.2-5.0); ALKALINE PHOSPHATASE 77 u/l (38-126); ANION GAP 16 (6-22 (CALC)); BILIRUBIN, TOTAL 0.8 mg/dL (0.0-1.4); BUN 14 mg/dL (7-17); BUN/CREATININE RATIO 28 (12-20 (CALC)); CARBON DIOXIDE 22 mmol/l (22-30); CHLORIDE 104 mmol/l (95-108); CREATININE 0.5 mg/dL (0.5-1.0); GFR > 60 ML/MIN (>=60 (CALC)); GFR FOR AFR.AMER. > 60 ML/MIN (>=60 (CALC)); LIPASE 69 u/l (23-300); POTASSIUM 3.2 mmol/l (3.5-5.1); SGOT/AST 27 u/l (14-36); SODIUM 139 mmol/l (137-146); TOTAL PROTEIN 7.7 g/dL (6.3-8.2)
--- NOTE | 2020-07-10 10:00 | NUR ---
PATIENT CONTINUES TO VOMIT NOTIFIED
--- NOTE | 2020-07-10 10:44 | NUR ---
Reassessment of patient completed. No distress noted.
--- NOTE | 2020-07-10 11:39 | NUR ---
CRITICAL LAB TAKEN INFO RELAYED TO DR DOMINGUEZ
--- NOTE | 2020-07-10 12:31 | NUR ---
Reassessment of patient completed. No distress noted.
[2020-07-10 13:38] LABS: URINE BILIRUBIN - DIPSTICK NEGATIVE (NEGATIVE); URINE BLOOD DIPSTICK NEGATIVE (NEGATIVE); URINE COLOR YELLOW; URINE GLUCOSE - DIPSTICK NEGATIVE (NEGATIVE); URINE KETONE 15 mg/dL (NEGATIVE); URINE LEUK ESTERASE NEGATIVE (NEGATIVE); URINE NITRITE - DIPSTICK NEGATIVE (Negative); URINE PH 6.5 (4.5-8.0); URINE PROTEIN - DIPSTICK NEGATIVE (NEG-TRACE); URINE SPECIFIC GRAVITY 1.015; URINE UROBILINOGEN - DIPSTICK 0.2 E.U./dL (0.2)
--- NOTE | 2020-07-10 13:49 | NUR ---
Reassessment of patient completed. No distress noted.
--- NOTE | 2020-07-10 14:07 | NUR ---
NO ANSWER WHEN ATTEMPTING TO CALL REPORT
[2020-07-10] MEDS ORDERED: NAPROXEN375 MG PO (14:52)
[2020-07-10] MEDS ORDERED: OXYCODONE15 MG PO (14:54)
[2020-07-10] MEDS ORDERED: VIVELLE-DO0.05 MG/24 TD (14:54)
[2020-07-10] MEDS ORDERED: CYMBALTA60 MG PO (14:55)
--- NOTE | 2020-07-10 15:08 | NUR ---
REPORT CALLED TO MED SURG
--- NOTE | 2020-07-10 15:10 | NUR ---
RECIEVED REPORT FROM SUSAN SUN
--- NOTE | 2020-07-10 15:52 | NUR ---
PT ARRIVED TO [facility] ROOM 263 VIA STRETCHER ACCOMPAINED BY ER STAFF.PT APPEARS TO BE VERY DROWSY. ASSESSMENT AND VITALS COMPLETED. BP 135/81, HR 55, O2 100% ON ROOM AIR. RESPIRATIONS ARE EVEN AND UNLABORED WITH NO DISTRESS NOTED. HEART RHYTHM IS NORMAL. BOWEL SOUNDS ARE ACTIVE. RADIAL AND RIGHT PEDAL PUSLES ARE STRONG. LEFT LEG AMPUTATION NOTED.#22G IN RAC FLUSHED, IVF STARTED, SITE APPEARS HEALTHY AND PATENT. SKIN IS WARM AND INTACT. PT COMPLAINS OF SEVERE NAUSEA, PT MEDICATED PER EMAR. SOFTWARE VALIDATION ENGINEER NOTFIED OF ALLERGIES, ALLERGY BAND AND FALL RISK BAND APPLIED. PT UNCOORPERATIVE WHEN ASKING QUESTIONS FOR ADMINITIONS, PT LAYS IN BED WITH EYES CLOSED. PT ORIENTED TO ROOM AND CALL LIGHT SYSTEM. ALL SAFETY PRECAUTIONS ARE IN PLACE WITH CALL LIGHT IN REACH. INSTRUCTED PT TO CALL FOR ASSISTANCE. WILL CONTINUE TO MONITOR.
[2020-07-10 16:07] VITALS: BP 135/81
--- NOTE | 2020-07-10 17:34 | NUR ---
PT CALLED REQUESTING ADDITIONAL MEDICATION FOR NAUSEA. PT MEDICATED PER EMAR. RESPIRATIONS REMAINS EVEN AND UNLABROED WITH NO DISTRESS NOTED. IVF INFUSING PER ORDER WITH K+ Y SITED, SITE REMAINS HEALTHY AND PATENT. ALL SAFETY PRECAUTIONS ARE IN PLACE. INTRUCTED PT TO CALL FOR ASSISTANCE. WILL CONTINUE TO MONITOR.
--- NOTE | 2020-07-10 18:30 | NUR ---
PT REQUEST TO SHOWER, STATING " MAYBE IT WILL HELP TO FEEL BETTER." HEALTH OCCUPATIONS INSTRUCTOR TO ASSIST PT WITH SETTING UP FOR SHOWER.
[2020-07-10 19:00] VITALS: BP 134/79
--- NOTE | 2020-07-10 19:29 | NUR ---
PT IS SLEEPING SOUNDLY, DID NOT AWAKE TO MY ENTERING THE ROOM. IVF RUNNING AT THIS TIME/SITE APPEARS HEALTHY. NO S/O DISTRESS, CALL LIGHT IS AT BEDSIDE.
--- NOTE | 2020-07-10 19:55 | NUR ---
PT CALLED TWICE ASKING FOR NAUSEA MEDICATIONS. PT MEDICATED ORDERS ALLOW AT THIS TIME. ROOM WAS VERY DARK AND PT APPEARED TO BE SLEEPING I ENTERED. WHEN I SPOKE AND TURNED SOME LIGHTS ON SHE STARTED MOANING. DENIES PAIN AT THIS TIME. REPORTS NAUSEA, EMESIS BAG HAS 150CC OF GREEN EMESIS. NEW EMESIS BAGS PROVIDED. PT DENIES DIAHRREA OR COUGH. REPORTS NAUSEA STARTED LAST NIGHT AT HOME. PT REFUSED LOVONOX SHOT. SHE ALSO ASKED FOR A SHOWER AFTER I MEDICATED HER, I ASKED HER TO WAIT DUE TO SAFETY REASONS CONSIDERING THE MEDICATION JUST ADMINISTERED, SHE VERBALIZED UNDERSTANDING. ENCOURAGED HER TO CALL NEEDS ARISE, DENIED ANY AT THIS TIME.
--- NOTE | 2020-07-11 01:04 | NUR ---
PT CALLED ASKING FOR MEDICATION FOR NAUSEA/VOMITING. EMESIS BAG EMPTIED OF 200CC OF GREEN LIQUID EMESIS. PT ASKED TO TAKE A SHOWER. WE ASSISTED PT TO SIT IN THE SHOWER FOR A FEW MINUTES. SHE THEN ASKED FOR BROTH AND CARIN, PROVIDED. PT LEFT IN BED WITH IV FLUIDS RUNNING EATING BROTH. CALL LIGHT AT SIDE.
--- NOTE | 2020-07-11 03:30 | NUR ---
FRUIT HARVEST MACHINE OPERATOR ENTERED PTS ROOM TO OBTAIN V/S. PT WAS FOUND IN THE SHOWER, FLOOR TO RESTROOM WAS FLOODED WITH AN INCH OF WATER COVERING ENTIRE FLOOR. BLANKETS WERE PLACED FOR SAFETY REASONS. PT HAD IV POLE IN RESTROOM AND STATED THAT SHE HAD NOT GOTTEN IV SITE WET. I HAD PREVIOUSLY DISCUSSED SAFETY ISSUES WITH PT GETTING IN THE SHOWER AND ASKED HER NOT TO WITH THE MEDICATIONS THAT SHE IS RECIEVING, SHE HAD VERBALIZED UNDERSTANDING. PT HAD JUST PREVIOUSLY RECIEVED ASSISTANCE WITH SHOWER EARLIER THIS AM. WHEN QUESTIONED AND REMINDED OF THIS, PT STATED, "I FELT SO SICK I NEEDED A SHOWER." WE ASSISTED HER BACK TO THE BED, NEW GOWN PLACED. IV SITE APPEARS CDI AND IVF ARE RUNNING AT THIS TIME.
[2020-07-11 04:00] VITALS: BP 135/83
--- NOTE | 2020-07-11 04:05 | NUR ---
PT BLOOD PRESSURE IS LOW IN 88/44, PT PLACED IN [place] POSITION AND PT EDUCATED ON WHY WE ARE PLACING HER IN THIS POSITION. PT IS ASKING FOR MORE MEDICATION FOR NAUSEA, I EXPLAINED TO HER THAT I CANNOT MEDICATE HER ANY FURTHER AT THIS TIME DUE TO PREVIOUS MEDICATIONS ADMINSTERED AND BP RUNNING SO LOW. SHE SAID "I FEEL SO SICK." I EXPLAINED THAT WE NEEDED HER BP TO COME BACK UP SOME BEFORE I AM ABLE TO MEDICATE HER FURTHER FOR THE NAUSEA. PT VERBALIZED UNDERSTANDING. CALL LIGHT AT SIDE.
[2020-07-11 05:51] LABS: HEMATOCRIT 35.1 % (37.0-47.0); HEMOGLOBIN 11.7 g/dl (12.0-16.0); IMMATURE GRANULOCYTES 0.6 % (0.0-5.0); MEAN CELL VOLUME 86.7 fL CALC (80.0-100.0); MEAN CORPUSCULAR HGB 28.9 pG CALC (26.0-32.0); MEAN CORPUSCULAR HGB CONC 33.3 g/dL CAL (32.0-36.0); NEUT# 8.69 thou/uL (2.00-7.15); RED BLOOD COUNT 4.05 mill/uL (4.20-5.60); RED CELL DISTRI WIDTH 14.5 % (11.5-15.5)
[2020-07-11 06:02] LABS: ALBUMIN 4.4 g/dL (3.2-5.0); ALKALINE PHOSPHATASE 68 u/l (38-126); BILIRUBIN, TOTAL 0.9 mg/dL (0.0-1.4); BUN 5 mg/dL (7-17); BUN/CREATININE RATIO 11 (12-20 (CALC)); CARBON DIOXIDE 23 mmol/l (22-30); CHLORIDE 100 mmol/l (95-108); CREATININE 0.4 mg/dL (0.5-1.0); GFR > 60 ML/MIN (>=60 (CALC)); GFR FOR AFR.AMER. > 60 ML/MIN (>=60 (CALC)); MAGNESIUM 1.3 mg/dL (1.6-2.3); POTASSIUM 3.6 mmol/l (3.5-5.1); SGOT/AST 23 u/l (14-36); TOTAL PROTEIN 6.6 g/dL (6.3-8.2)
[2020-07-11 06:08] LABS: ANION GAP 11 (6-22 (CALC)); SODIUM 130 mmol/l (137-146)
[2020-07-11 08:00] VITALS: BP 102/60
--- NOTE | 2020-07-11 08:30 | NUR ---
PATIENT RESTING IN THE BED AXOX3 , NOTED LAKA. IV INFUSING. C/O NAUSEA MED PER ORDER. REPOSITIOEND FOR COMOFRT. SIDE RASIL UP CALL LIGHT IN REACH BED LOCKED IN LOW POSITION, ALL SAFTY MEASURES IN PLACE. EDUCATED PT ON USE OF THE CALL LIGHT FOR NURSE. WI;; CONTINUE TO MONIOTR.
--- NOTE | 2020-07-11 10:00 | NUR ---
C/O PAIN MED PER ORDER. EDUCATED PATIENT ON NOT GETTING UP ON HER OWN TO CALL THE NURSE. BED ALARM ON.WILL CONTINUE TO MONIOTR THE PATIENT.
--- NOTE | 2020-07-11 12:21 | NUR ---
PT RESTING COMFORTABLE IN THE BED NO DISTRESS NOTED AT THIS TIME. WILL CONTINUE TO MONITOR THE PATIENT.
[2020-07-11] MEDS ORDERED: ZOFRAN4 MG/TAB PO (12:49)
--- NOTE | 2020-07-11 13:56 | NUR ---
INSTRUCTED THE PATIENT SHE IS TO BE DISCHARGED. HL REMOVED TIP INTACT.
--- NOTE | 2020-07-11 14:13 | NUR ---
DISCHARGE ORDERS GIVEN UNDERSTOOD AND SIGNED BY THE PATIENT. PT LEFT TO GO TO HER OWN HOME.
== END 2020-07-11 14:17 | disposition home or self-care (01) | DRG 392 ==
LOC: ED 08:03 → ED-I 12:42 → ED 13:08 → MS2 13:09
PROVIDERS: Family Medicine; Nurse Practitioner; ADMIT Internal Medicine; ATTEND Internal Medicine
DX: R11.2 Nausea with vomiting, unspecified (principal); E87.2 Acidosis; E87.6 Hypokalemia; E83.42 Hypomagnesemia; F41.9 Anxiety disorder, unspecified; G35 Multiple sclerosis; F17.200 Nicotine dependence, unspecified, uncomplicated; Z79.891 Long term (current) use of opiate analgesic; Z89.612 Acquired absence of left leg above knee; Z20.822 Contact with and (suspected) exposure to COVID-19
CPT/HCPCS: G0378; J1650; J3475; Q9967

== ENCOUNTER 2020-07-13 02:30 | Emergency (ER) | payer OTHER, MEDICAID ==
[~2020-07-13] VITALS: Ht 162.6 cm; Wt 50.0 kg
[~2020-07-13 02:30] MED LIST changes: +NAPROXEN375 MG PO; +VIVELLE-DO0.05 MG/24 TD
[2020-07-13 03:20] LABS: HEMATOCRIT 39.2 % (37.0-47.0); HEMOGLOBIN 12.9 g/dl (12.0-16.0); IMMATURE GRANULOCYTES 0.6 % (0.0-5.0); MEAN CELL VOLUME 88.9 fL CALC (80.0-100.0); MEAN CORPUSCULAR HGB 29.3 pG CALC (26.0-32.0); MEAN CORPUSCULAR HGB CONC 32.9 g/dL CAL (32.0-36.0); NEUT# 10.28 thou/uL (2.00-7.15); RED BLOOD COUNT 4.41 mill/uL (4.20-5.60); RED CELL DISTRI WIDTH 14.8 % (11.5-15.5); URINE BLOOD DIPSTICK NEGATIVE (NEGATIVE); URINE COLOR YELLOW; URINE GLUCOSE - DIPSTICK NEGATIVE (NEGATIVE); URINE KETONE 15 mg/dL (NEGATIVE); URINE LEUK ESTERASE NEGATIVE (NEGATIVE); URINE NITRITE - DIPSTICK NEGATIVE (Negative); URINE PROTEIN - DIPSTICK TRACE mg/dL (NEG-TRACE); URINE SPECIFIC GRAVITY >=1.030; URINE UROBILINOGEN - DIPSTICK 0.2 E.U./dL (0.2)
[2020-07-13 03:24] LABS: URINE BILIRUBIN - DIPSTICK NEGATIVE (NEGATIVE)
[2020-07-13 03:34] LABS: ALBUMIN 4.9 g/dL (3.2-5.0); ALKALINE PHOSPHATASE 58 u/l (38-126); AMYLASE 89 u/l (30-110); BILIRUBIN, TOTAL 0.6 mg/dL (0.0-1.4); BUN 14 mg/dL (7-17); BUN/CREATININE RATIO 24 (12-20 (CALC)); CHLORIDE 98 mmol/l (95-108); CREATININE 0.6 mg/dL (0.5-1.0); GFR > 60 ML/MIN (>=60 (CALC)); GFR FOR AFR.AMER. > 60 ML/MIN (>=60 (CALC)); LIPASE 396 u/l (23-300); POTASSIUM 3.3 mmol/l (3.5-5.1); SGOT/AST 19 u/l (14-36); TOTAL PROTEIN 7.3 g/dL (6.3-8.2)
[2020-07-13 03:36] LABS: ANION GAP 13 (6-22 (CALC)); CARBON DIOXIDE 30 mmol/l (22-30); SODIUM 138 mmol/l (137-146)
[2020-07-13 06:24] VITALS: BP 124/82
== END 2020-07-13 06:23 | disposition left against medical advice (07) | DRG 392 ==
LOC: ED 02:30
PROVIDERS: Family Medicine
DX: R11.2 Nausea with vomiting, unspecified (principal); F41.9 Anxiety disorder, unspecified; G35 Multiple sclerosis; F17.200 Nicotine dependence, unspecified, uncomplicated; Z86.73 Personal history of transient ischemic attack (TIA), and cerebral infarction without residual deficits; Z89.612 Acquired absence of left leg above knee; Z91.19 Patient's noncompliance with other medical treatment and regimen

== ENCOUNTER 2020-09-10 | Emergency (ER) | payer OTHER, MEDICAID | END 2020-09-10 15:53 | disposition home or self-care (01) | DRG 866 | DX: B34.9 Viral infection, unspecified (principal); F41.9 Anxiety disorder, unspecified; G35 Multiple sclerosis; F17.200 Nicotine dependence, unspecified, uncomplicated; Z86.73 Personal history of transient ischemic attack (TIA), and cerebral infarction without residual deficits; Z89.612 Acquired absence of left leg above knee; Z20.822 Contact with and (suspected) exposure to COVID-19 ==

== ENCOUNTER 2020-09-25 18:03 | Emergency (ER) | payer OTHER, MEDICAID ==
[~2020-09-25] VITALS: Ht 162.6 cm; Wt 55.0 kg
[2020-09-25] MEDS ORDERED: METHADONE10 M1 PO (18:24)
[2020-09-25] MEDS ORDERED: SIMVASTATIN5 MG PO (18:24)
[2020-09-25 18:55] LABS: HEMATOCRIT 33.7 % (37.0-47.0); IMMATURE GRANULOCYTES 0.2 % (0.0-5.0); MEAN CELL VOLUME 85.1 fL CALC (80.0-100.0); MEAN CORPUSCULAR HGB 27.8 pG CALC (26.0-32.0); MEAN CORPUSCULAR HGB CONC 32.6 g/dL CAL (32.0-36.0); NEUT# 2.68 thou/uL (2.00-7.15); RED BLOOD COUNT 3.96 mill/uL (4.20-5.60); RED CELL DISTRI WIDTH 13.8 % (11.5-15.5)
[2020-09-25 19:09] LABS: ALKALINE PHOSPHATASE 68 u/l (38-126); AMYLASE 61 u/l (30-110); ANION GAP 15 (6-22 (CALC)); BILIRUBIN, TOTAL 0.7 mg/dL (0.0-1.4); BUN 16 mg/dL (7-17); BUN/CREATININE RATIO 33 (12-20 (CALC)); CARBON DIOXIDE 29 mmol/l (22-30); CHLORIDE 94 mmol/l (95-108); CREATININE 0.5 mg/dL (0.5-1.0); GFR > 60 ML/MIN (>=60 (CALC)); GFR FOR AFR.AMER. > 60 ML/MIN (>=60 (CALC)); LIPASE 49 u/l (23-300); POTASSIUM 3.7 mmol/l (3.5-5.1); SGOT/AST 20 u/l (14-36); SODIUM 135 mmol/l (137-146); TOTAL PROTEIN 6.8 g/dL (6.3-8.2)
[2020-09-25 21:08] VITALS: BP 101/54
== END 2020-09-25 21:21 | disposition home or self-care (01) | DRG 103 ==
LOC: ED 18:03
DX: R51.9 Headache, unspecified (principal); R43.9 Unspecified disturbances of smell and taste; R63.0 Anorexia; R53.83 Other fatigue; M79.602 Pain in left arm; M79.601 Pain in right arm; F41.9 Anxiety disorder, unspecified; G35 Multiple sclerosis; F17.210 Nicotine dependence, cigarettes, uncomplicated; Z86.73 Personal history of transient ischemic attack (TIA), and cerebral infarction without residual deficits; Z89.612 Acquired absence of left leg above knee; Z20.822 Contact with and (suspected) exposure to COVID-19

== ENCOUNTER 2020-09-29 06:56 | Observation (INO) | payer OTHER, MEDICAID ==
[~2020-09-29] VITALS: Ht 162.6 cm; Wt 46.0 kg
[~2020-09-29 06:56] MED LIST changes: +METHADONE10 M1 PO; +SIMVASTATIN5 MG PO
--- NOTE | 2020-09-29 07:00 | NUR ---
TO ROOM VIA MD KEO AT BEDSIDE.
--- NOTE | 2020-09-29 07:25 | NUR ---
COVID SWAB COLLECTED, ISOLATION PRECAUTIONS INITIATED.
[2020-09-29 07:34] LABS: HEMATOCRIT 38.1 % (37.0-47.0); HEMOGLOBIN 12.6 g/dl (12.0-16.0); IMMATURE GRANULOCYTES 0.4 % (0.0-5.0); MEAN CELL VOLUME 83.7 fL CALC (80.0-100.0); MEAN CORPUSCULAR HGB 27.7 pG CALC (26.0-32.0); MEAN CORPUSCULAR HGB CONC 33.1 g/dL CAL (32.0-36.0); NEUT# 5.38 thou/uL (2.00-7.15); RED BLOOD COUNT 4.55 mill/uL (4.20-5.60); RED CELL DISTRI WIDTH 13.7 % (11.5-15.5)
[2020-09-29 07:47] LABS: ALBUMIN 4.7 g/dL (3.2-5.0); AMYLASE 80 u/l (30-110); BUN 13 mg/dL (7-17); BUN/CREATININE RATIO 24 (12-20 (CALC)); CHLORIDE 102 mmol/l (95-108); CREATININE 0.5 mg/dL (0.5-1.0); GFR > 60 ML/MIN (>=60 (CALC)); GFR FOR AFR.AMER. > 60 ML/MIN (>=60 (CALC)); LIPASE 201 u/l (23-300); POTASSIUM 3.8 mmol/l (3.5-5.1); SODIUM 137 mmol/l (137-146); TOTAL PROTEIN 7.9 g/dL (6.3-8.2)
[2020-09-29 07:50] LABS: ALKALINE PHOSPHATASE 143 u/l (38-126); ANION GAP 17 (6-22 (CALC)); BILIRUBIN, TOTAL 1.3 mg/dL (0.0-1.4); CARBON DIOXIDE 22 mmol/l (22-30); SGOT/AST 485 u/l (14-36)
--- NOTE | 2020-09-29 07:51 | NUR ---
PATIENT RESTING QUIETLY. MOUTH CARE AND COMFORT MEASURES GIVEN.
--- NOTE | 2020-09-29 08:13 | NUR ---
PATIENT RESTING QUIETLY. CALL CRUZ IN REACH
--- NOTE | 2020-09-29 09:22 | NUR ---
REQUESTED A URINE SAMPLE.PATIENT UNABLE TO VOID AT TTHIS TIME
--- NOTE | 2020-09-29 10:00 | NUR ---
ASSISTED PATIENT TO BATHROOM VIA WC, PATIENT NEED MINIMAL TO NO ASSIST. URINE OBTAINED AND SENT TO [facility]. PATIENT ASSISTED BACK TO BED.
--- NOTE | 2020-09-29 10:10 | NUR ---
PATIENT STOPPED VOMITING ON HER OWN AND LAID DOWN TO REST, EYES CLOSED, BLANKET PROVIDED. IVF STARTED AGAIN TO RIGHT AC. ALCOHOL PREP PAD GIVEN FOR NAUSEAS WITH GOOD EFFECT. CALL CRUZ IN REACH. WILL CONTINUE TO MONITOR.
--- NOTE | 2020-09-29 10:10 | NUR ---
PATIENT VOMITING DARK FLUID, LOUDLY. MONITORING AT BEDSIDE.
--- NOTE | 2020-09-29 10:30 | NUR ---
PATIENT RESTING, EYES CLOSED, NO DISTRESS NOTED. CONTINUING TO MONITOR.
[2020-09-29 10:38] LABS: URINE BILIRUBIN - DIPSTICK NEGATIVE (NEGATIVE); URINE BLOOD DIPSTICK NEGATIVE (NEGATIVE); URINE COLOR YELLOW; URINE GLUCOSE - DIPSTICK NEGATIVE (NEGATIVE); URINE KETONE 15 mg/dL (NEGATIVE); URINE LEUK ESTERASE NEGATIVE (NEGATIVE); URINE PH 6.5 (4.5-8.0); URINE PROTEIN - DIPSTICK NEGATIVE (NEG-TRACE); URINE UROBILINOGEN - DIPSTICK 0.2 E.U./dL (0.2)
[2020-09-29 10:52] LABS: URINE NITRITE - DIPSTICK NEGATIVE (Negative)
--- NOTE | 2020-09-29 10:55 | NUR ---
PATIENT RESTING, UNDERSTANDS SHE IS BEING ADMITTED. NO DISTRESS NOTED. CALL CRUZ IN REACH, AWAITING BED ASSIGNMENT.
--- NOTE | 2020-09-29 11:17 | NUR ---
REPORT RECEIVED FROM SUSAN EAGLE
--- NOTE | 2020-09-29 11:18 | NUR ---
REPORT CALLED TO ALEXIS IN SBAR FORMAT.
[2020-09-29 11:35] VITALS: BP 141/80
--- NOTE | 2020-09-29 11:35 | NUR ---
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
--- NOTE | 2020-09-29 12:25 | NUR ---
PT APPEARS TO BE SLEEPING IN LEFT SIDE LAYING POSITION;RESPIRATIONS EVEN AND UNLABORED ON RA;NO S/S OF DISTRESS NOTED;TELE MONITORING IN PLACE;IV FLUIDS CONTINUE TO INFUSE WITH EASE TO RAC;ALL SAFETY PRECAUTIONS REMAIN IN PLACE WITH BED IN THE LOWEST POSITION AND CALL LIGHT IN REACH;WILL CONTINUE TO MONITOR
--- NOTE | 2020-09-29 13:35 | NUR ---
PT RESTING IN SEMI FOWLERS POSITION;PT REQUEST TO GET A SHOWER, ASSISTED INTO SHOWER PER REQUEST;TELE MONITORING REMOVED AT THIS TIME;IV SITE REMAINS PATENT;PT INSTRUCTED TO CALL FOR ASSISTANCE WHEN FINISHED AND VERBALIZES UNDERSTANDING;CALL LIGHT IN REACH;WILL CONTINUE TO MONITOR
--- NOTE | 2020-09-29 14:00 | NUR ---
PT VOMITED 100CC OF GREEN FLUID AND REQUESTS PRN ANITEMETIC, PT MEDICATED WITH PRN PHENERGAN 12.5MG SLOW IVP AT THIS TIME;PT DENIES ANY ADDITIONAL NEEDS;ENCOURAGED TO CALL FOR ASSISTANCE IF NEEDED;CALL LIGHT IN REACH;WILL CONTINUE TO MONITOR
[2020-09-29 14:50] VITALS: BP 143/87
--- NOTE | 2020-09-29 15:55 | NUR ---
PT APPEARS TO BE SLEEPING IN SEMI FOWLERS POSITION;RESPIRATIONS APPEAR EVEN AND UNLABORED ON RA;NO S/S OF DISTESS NOTED;TELE MONITORING IN PLACE;IV SITE PATENT INFUSING NS WITH EASE PER ORDER;ALL SAFETY PRECAUTIONS REMAIN IN PLACE WITH CALL LIGHT IN REACH;WILL CONTINUE TO MONITOR
--- NOTE | 2020-09-29 17:07 | NUR ---
PT MEDICATED WITH PRN REGLAN IV PER REQUEST,WILL CONTINUE TO MONITOR FOR EFFECTIVENESS
[2020-09-29 19:00] VITALS: BP 122/74
--- NOTE | 2020-09-29 20:17 | NUR ---
PATIENT IS ALERT AND ORIENTED X3. ABLE TO MAKE NEEDS KNOWN. HAS LEFT AKA. ON TELEMETRY RUNNING SR. RESPIRATIONS EASY. C/O NAUSEA, ZOFRAN IV GIVEN AND COOL COMPRESS TO NECK APPLIED. AT 1950 PATIENT WAS FOUND IN THE SHOWER WITH IV POLE. YARD SUPERVISOR COTTON GIN CALLED AND SAID PATIENT WAS OFF TELEMETRY. THIS NURSE EDUCATED PATIENT OF IMPORTANCE OF ASKING FOR ASSISTANCE AND TO NOT REMOVED EQUIPMENT. STAFF IS HERE TO ASSIST. PATENT VERBALZIED UNDERSTANDING. FALL PRECAUTIONS IN PLACE. PATIENT NOW IN BED. BED IN LOW POSITION. CALL LIGHT WITHIN REACH.
--- NOTE | 2020-09-29 20:33 | NUR ---
PATIENT HAD 600 CC LIGHT YELLOW EMESIS AFTER CONSUMING CHICKEN BROTH. WILL GIVEN PHNENERGAN WITH EVENING MEDICATIONS.
--- NOTE | 2020-09-29 21:25 | NUR ---
PATIENT GIVEN PRN PHENERGAN. REFUSED LOVENOX THIS EVENING.
--- NOTE | 2020-09-29 21:55 | NUR ---
PATIENT HAD ANOTHER 100 ML YELLOW EMESIS AT 2100.
[2020-09-29 23:00] VITALS: BP 119/76
--- NOTE | 2020-09-29 23:02 | NUR ---
PATIENT CALLED REQUESTING SHOWER. INFORMED PATIENT THAT WE NEED HER TELEMETRY READING AT MIDNIGHT BECAUSE SHE TOOK HER TELEMETRY OFF AROUND 1999 AND TOOK A SHOWER WITHOUT INFORMING ANYONE AND WE DID NOT RECEIVED A TELEMETRY READING FOR 1999. PATIENT IS NONCOMPLIANT AND TAKING HERSELF TO THE SHOWER AT THIS TIME.
--- NOTE | 2020-09-29 23:47 | NUR ---
PATIENT HAD ANOTHER 400 ML OF YELLOW GREEN EMESIS. REGLAN 10 MG IV GIVEN.
--- NOTE | 2020-09-30 01:57 | NUR ---
TREASURY MANAGER CALLED AROUND 0140 STATING PATIENT IS OFF TELEMETRY. CAN ENTERED ROOM TO FIND PATIENT IN SHOWER AGAIN WITH IV POLE. PATIENT DOES NOT USE CALL LIGHT FOR ASSISTANCE. ZOFRAN IV GIVEN FOR N/V.
--- NOTE | 2020-09-30 03:28 | NUR ---
PATIENT WAS FOUND UP TO BATHROOM FOR SHOWER AGAIN WITHOUT TELEMETRY AROUN 0200. PATIENT IS NONCOMPLIANT.
[2020-09-30 04:00] VITALS: BP 109/71
--- NOTE | 2020-09-30 04:17 | NUR ---
PATIENT CALLED TO GET UP TO SHOWER AGAIN. PATIENT UP TO SHOWER. TELEMETRY REMOVED. IVF STOPPED AND DISCONNECTED. VAD TAPED/WATERPROOFED.
[2020-09-30 05:11] LABS: MEAN CELL VOLUME 83.6 fL CALC (80.0-100.0); MEAN CORPUSCULAR HGB 27.7 pG CALC (26.0-32.0); MEAN CORPUSCULAR HGB CONC 33.1 g/dL CAL (32.0-36.0); RED BLOOD COUNT 3.83 mill/uL (4.20-5.60); RED CELL DISTRI WIDTH 13.8 % (11.5-15.5)
--- NOTE | 2020-09-30 05:13 | NUR ---
AROUND 0300 LIQUIDS REMOVED AND ICE CHIPS GIVEN TO HELP RELIEVE N/V. EDUCATED PATIENT ON RESTING STOMACH AND ALLOWING TO SETTLE AND TO USE ICE CHIPS SPARINGLY UNTIL FEELING BETTER. PATIENT VERBALIZED UNDERSTANDING.
[2020-09-30 05:14] LABS: HEMOGLOBIN 10.6 g/dl (12.0-16.0)
[2020-09-30 05:39] LABS: ANION GAP 13 (6-22 (CALC)); BUN 11 mg/dL (7-17); BUN/CREATININE RATIO 23 (12-20 (CALC)); CARBON DIOXIDE 24 mmol/l (22-30); CHLORIDE 103 mmol/l (95-108); CREATININE 0.5 mg/dL (0.5-1.0); GFR > 60 ML/MIN (>=60 (CALC)); GFR FOR AFR.AMER. > 60 ML/MIN (>=60 (CALC)); MAGNESIUM 1.5 mg/dL (1.6-2.3); POTASSIUM 3.4 mmol/l (3.5-5.1); SODIUM 137 mmol/l (137-146)
--- NOTE | 2020-09-30 06:41 | NUR ---
TELEMETRY CALLED, PT OFF TELE, PATIENT HAD TAKEN OFF TELEMETRY AND LEADS. TELEMETRY REAPPLIED. CALLED TO CONFIRM WORKING.
--- NOTE | 2020-09-30 07:10 | NUR ---
REPORT RECEIVED FROM SUSAN JENKINS.PT CURRENTLY IN SHOWER.
[2020-09-30 07:57] VITALS: BP 136/74
--- NOTE | 2020-09-30 08:00 | NUR ---
PT RESTING IN SEMI FOWLERS POSITION,A&O X3;VS OBTAINED AND ASSESSMENT COMPLETED;PT DENIES ANY CURRENT PAIN BUT DOES REPORT NAUSEA, PT MEDICATED WITH PRN ZOFRAN 4MG IVP;PAIN SCALE AND REPORTING ALSO EDUCATED;RESPIRATIONS EVEN AND UNLABORED ON RA,CLEAR LUNG SOUNDS;ABDOMEN SOFT ON PALPATION AND ACTIVE IN ALL 4 QUADRANTS, TENDERNESS NOTED THROUGHOUT;STRONG RIGHT PEDAL PULSE, PT LEFT ATK AMPUTEE;TELE MONITORING IN PLACE;#20G TO RAC INFUSING NS @ 100ML/HR,SITE APPEARS HEALTHY;NICOTINE PATCH APPLIED TO RIGHT SHOULDER;PT DENIES ANY ADDITIONAL NEEDS AND IS ENCOURAGED TO CALL FOR ASSISTANCE IF NEEDED;FALL PRECAUTIONS IN PLACE WITH BED IN THE LOWEST POSITION;CALL LIGHT IN REACH;WILL CONTINUE TO MONITOR
--- NOTE | 2020-09-30 09:42 | NUR ---
AND KARLOS ANRP AT BEDSIDE DISCUSSING POC.
--- NOTE | 2020-09-30 09:55 | NUR ---
PT MEDICATED WITH PRN MORPHINE 4MG SLOW IVP FOR ABDOMINAL PAIN AND PHENERGAN 12.5MG SLOW IVP FOR NAUSEA AT THIS TIME,WILL CONTINUE TO MONITOR
--- NOTE | 2020-09-30 10:12 | NUR ---
HOME METH[employer] PLACED IN SEALED PHARMACY BAG WITH PT AND SENT TO PHARMACY AT THIS TIME.
[2020-09-30 10:57] VITALS: BP 122/73
--- NOTE | 2020-09-30 11:15 | NUR ---
PT RESTING IN SEMI FOWLERS POSITION;RESPIRATIONS EVEN AND UNLABORED ON RA;PT REPORTS NAUSEA AND PAIN HAVE DECREASED SINCE MEDICATION ADMINISTRATION;IV POTASSIUM INFUSING PER ORDER WITH EASE;TELE MONITORING IN PLACE;PT DENIES ANY ADDITIONAL NEEDS AND IS ENCOURAGED TO CALL FOR ASSISTANCE IF NEEDED;FALL PRECAUTIONS REMAIN IN PLACE WITH CALL LIGHT IN REACH;WILL CONTINUE TO MONITOR
--- NOTE | 2020-09-30 14:30 | NUR ---
PT MEDICATED WITH PRN MORPHINE 4MG SLOW IVP PER REQUEST FOR ABDOMINAL PAIN,WILL CONTINUE TO MONITOR FOR EFFECTIVESS.
[2020-09-30 14:56] VITALS: BP 103/74
--- NOTE | 2020-09-30 15:35 | NUR ---
PT RESTING IN SEMI FOWLERS POSITION;RESPIRATIONS EVEN AND UNLABORED ON RA;PT DENIES ANY CURRENT PAIN OR NEEDS;TELE MONITORING IN PLACE AND REMOVED PER PT REQUEST FOR A SHOWER;IV SITE REMAINS PATENT INFUSING WITH EASE;PT ENCOURAGED TO CALL FOR ASSISTANCE IF NEEDED;FALL PRECAUTIONS REMAIN IN PLACE WITH BED IN THE LOWEST POSITION AND CALL LIGHT IN REACH;WILL CONTINUE TO MONITOR
--- NOTE | 2020-09-30 16:30 | NUR ---
PT MEDICATED WITH PRN PHENERAGAN 12.5MG SLOW IVP FOR NAUSEA PER REQUEST.
--- NOTE | 2020-09-30 18:58 | NUR ---
RECEIVED REPORT FROM NURSE LEXI, PATIENT CALLED REQUESTED TO GO IN THE SHOWER, BREATHING UNLABORED, CALL LIGHT AT REACH.
[2020-09-30 19:00] VITALS: BP 110/67
--- NOTE | 2020-09-30 19:58 | NUR ---
NOTIFIED CORRESPONDENCE RENEW CLERK ABOUT PATIENT REQUEST TO RESUME HOME MEDS SINCE STOMACH FEELS BETTER NOT NAUSEUS AT THIS TIME WITH ORDERS MADE.
--- NOTE | 2020-09-30 20:00 | NUR ---
PATIENT ALERT ORIENTED ABLE TO MAKE NEEDS KNOWN, CONTINENT OF BOWEL AND BLADDER, WITH ONGOING IV NS @ 100CC/HR INFUSING WELL ON RAC, REMAINS ON TELE SR 66, LBM 09/28, ACTIVE BOWEL SOUNDS ON ALL QUADRANTS ON CLEAR LIQUID DIET, PATIENT IS A LEFT AKA STUMP CDI, CALL LIGHT AT REACH.
--- NOTE | 2020-09-30 21:49 | NUR ---
PATIENT VOMITTING CLEAR IN COLOR APPROXIMATELY 200CC, PRN ZOFRAN GIVEN AT THIS TIME.
[2020-10-01] VITALS (7 sets, daily range): BP systolic 84–141; BP diastolic 53–91
--- NOTE | 2020-10-01 | NUR ---
PATIENT STILL C/O NAUSEA, WILL MEDICATE, BREATHING UNLABORED, REQUESTED TO GO IN THE SHOWER.ASSISTED.
--- NOTE | 2020-10-01 03:54 | NUR ---
PATIENT REQUESTED TO GO IN THE SHOWER, ASSISTED, BREATHING EVEN UNLABORED, CALL LIGHT AT REACH.
[2020-10-01 05:39] LABS: HEMATOCRIT 31.1 % (37.0-47.0); HEMOGLOBIN 10.3 g/dl (12.0-16.0); MEAN CELL VOLUME 83.8 fL CALC (80.0-100.0); MEAN CORPUSCULAR HGB 27.8 pG CALC (26.0-32.0); MEAN CORPUSCULAR HGB CONC 33.1 g/dL CAL (32.0-36.0); RED BLOOD COUNT 3.71 mill/uL (4.20-5.60); RED CELL DISTRI WIDTH 13.8 % (11.5-15.5)
[2020-10-01 05:54] LABS: ALBUMIN 3.8 g/dL (3.2-5.0); ALKALINE PHOSPHATASE 79 u/l (38-126); ANION GAP 12 (6-22 (CALC)); BUN 9 mg/dL (7-17); BUN/CREATININE RATIO 20 (12-20 (CALC)); CARBON DIOXIDE 23 mmol/l (22-30); CHLORIDE 103 mmol/l (95-108); CREATININE 0.5 mg/dL (0.5-1.0); GFR > 60 ML/MIN (>=60 (CALC)); GFR FOR AFR.AMER. > 60 ML/MIN (>=60 (CALC)); POTASSIUM 3.8 mmol/l (3.5-5.1); SODIUM 134 mmol/l (137-146)
[2020-10-01 05:57] LABS: SGOT/AST 26 u/l (14-36); TOTAL PROTEIN 6.3 g/dL (6.3-8.2)
--- NOTE | 2020-10-01 07:28 | NUR ---
PT SLEEPING IN SEMI FOWLERS. AWAKENS TO SPEECH. PT IS A/O X3. ASSESSMENT AND VITALS COMPLETED. BP 120/76, HR 68, O2 99% ON ROOM AIR. RESPIRATIONS ARE EVEN AND UNLABORED WITH NO DISRTESS NOTED. LUNG SOUNDS ARE CLEAR. BOWEL SOUND SARE HYPOACTIVE. LAST REPORTED BM 09/28/20. PT STATES THAT IS NORMAL FOR HER. SKIN INTACT. PT IS BKA. #20G IN RFA INFUSING WITH IVF PER ORDER, SITE REMAINS HEALTHY AND PATENT. PT DENIES OF ANY PAINS BUT REPORTS SOME NAUSEA, PT MEDICATED PER EMAR. PT DENIES OF ANY NEEDS AT THIS TIME. ALL SAFETY PRECAUTIONS ARE IN PLACE WITH CALL LIGHT IN REACH. WHEELCHAIR AND BSC IN PLACE. WILL CONTINUE TO MONITOR.
--- NOTE | 2020-10-01 08:50 | NUR ---
MORNING MEDS ADMINISTERED. PHENERGAN ADMINISTERED. PT TOLERATED WELL.
--- NOTE | 2020-10-01 10:19 | NUR ---
DR TRIPLETT AT BEDSIDE
--- NOTE | 2020-10-01 11:41 | NUR ---
PT SITTING UP IN BED. METHADONE ADMINISTERED. PT TOLERATED WELL. RESPIRATIONS ARE EVEN AND UNLABORED WITH NO DISTRSS NOTED. PT DENIES OF ANY PAINS OR NEEDS AT THIS TIME. ALL SAFETY PRECAUTIONS ARE IN PLACE WITH CALL LIGHT IN REACH. WILL CONTINUE TO MONITOR.
--- NOTE | 2020-10-01 11:58 | NUR ---
PT REQUEST FOR FRUIT AT THIS TIME. FAMILY CONSUMER SCIENCE TEACHER SUGGESTED SOFT DIET. PT ACCEPTED. YOGI CALLED.
--- NOTE | 2020-10-01 12:58 | NUR ---
PT COMPLAINING OF NAUSEA. REGLAN TO BE ADMINISTERED. IV INFILTRATED. ATTEMPTED TO START NEW IV. PT CONTINUED TO PULL AWAY AND ASK NIGHT WAREHOUSE SELECTOR NOT TO FISH. NIGHT WAREHOUSE SELECTOR ENSURED PT THAT IF PAIN WAS CAUSED NIGHT WAREHOUSE SELECTOR WOULD ASK ANOTHER NURSE. PT CONTINUED TO GRAB WRITERS HAND WHILE NEEDLE WAS IN HAND. PT INSTRUCTED ANOTHER NURSE WOULD BE IN TO ATTEMPT TO START NEW IV.
--- NOTE | 2020-10-01 14:04 | NUR ---
SUSAN SANTIZO ATTEMPTED TO START IV. PT CONTINUES TO MOVE. SUSAN RODRÍGUEZ AT BEDSIDE TO ATTEMPT
--- NOTE | 2020-10-01 14:24 | NUR ---
#22G STARTED IN LFA, SITE APPEARS HEALTHY AND PATENT. #20G IN RFA REMOVED WITH CATHATER STILL INTACT. WILL CONTINUE TO MONITOR.
--- NOTE | 2020-10-01 15:24 | NUR ---
PT SLEEPING WITH EYES CLOSED. REPSIRATIONS ARE EVEN AND UNLABORED. #22G IN LFA REMAINS IN PLACE, INFUSING WITH IVF PER ORDER, SITE APPEARS HEALTHY AND PATENT. NO SIGNS OF ANY PAINS OR DISCOMFORTS. WILL CONTINUE TO MONITOR.
--- NOTE | 2020-10-01 16:29 | NUR ---
Patient was assessed today and is not a candidate for PT intervention at this time.
--- NOTE | 2020-10-01 19:18 | NUR ---
PT CALLED ASKING FOR CRACKERS, I DISCUSSED DIETARY ORDERS OF CL LIQUID WITH PT, SHE IS EATING JELLO AND ARABIC ICE AT THIS TIME, SHE ASKED IF SHE TOLERATES THIS WELL CAN SHE HAVE MORE FOOD. I EXPLAINED POC WITH HER, SHE VERBALIZED UNDERSTANDING. ASSESSMENT COMPLETED AT THIS TIME. CALL LIGHT IS AT SIDE AND PT ENCOURAGED TO CALL NEEDS ARISE.
--- NOTE | 2020-10-01 20:44 | NUR ---
PT MEDICATED ORDERS PROVIDE. PT REPORTS HAVING TOLERATED TELUGU ICE AND JELLO WELL. 200CC OF DARK YELLOW URINE EMPTIED FROM BSC AT THIS TIME. PT IS IN BED WITH LIGHTS AND TV ON. PT REQUESTED TRAZADONE OR A SLEEP AIDE, I INFORMED HER THAT WE DO NOT HAVE ONE ORDERED BUT THAT I WOULD NOTIFY PHYSICIAN OF REQUEST. VERBALIZED UNDERSTANDING. CALL LIGHT AT SIDE AND PT ADVISED TO CALL IF ANY OTHER NEEDS ARISE.
--- NOTE | 2020-10-01 21:05 | NUR ---
PT CALLED TO REPORT THAT SHE IS GETTING A SHOWER, DENIED ANY NEEDS OF ASSISTANCE.
--- NOTE | 2020-10-01 21:12 | NUR ---
AUTOMOTIVE SHOP FOREMAN FILE MACHINE OPERATOR NOTIFIED OF REQUEST FOR SLEEP AIDE, NEW ORDER RECEIVED AT THIS TIME.
--- NOTE | 2020-10-01 23:22 | NUR ---
ED CALLED TO REPORT PT IS NOT ON OPTICAL MODEL MAKER AND TESTER, PRESCHOOL ASSISTANT IN WITH PT AT THIS TIME. V/S OBTAINED AT THIS TIME.
[2020-10-02 01:00] VITALS: BP 98/58
--- NOTE | 2020-10-02 01:00 | NUR ---
V/S ASSESSED WITH MANUAL BP ASSESSMENT. IV FLUIDS REPLENISHED AND PT PROVIDED SNACK PER REQUEST. SHE IS REQUESTING NORMAL BREAKFAST FOOD, DISCUSSED DIET WITH HER. SHE ASKED FOR CRACKERS EVEN THOUGH THE PHYSICIAN ORDERED DIET IS CLEAR LIQUID. ADDITIONAL JELLO ALSO PROVIDED.
--- NOTE | 2020-10-02 03:35 | NUR ---
V/S ASSESSED, PT DENIES ANY OTHER NEEDS AT THIS TIME. CALL LIGHT AT SIDE.
--- NOTE | 2020-10-02 03:50 | NUR ---
PT CALLED TO REPORT SHE WANTED TO GET IN THE SHOWER. IVF DISCONNECTED, IV SITE COVERED AND STITCHING MACHINE FEEDER OR OFFBEARER REMOVED. PT SELF TRANSFERRED TO AND TO SHOWER. CLEAN GOWN AND SOCKS, TOWELS, ETC. WERE PROVIDED. LINEN CHANGE PROVIDED AT THIS TIME. PT INSTRUCTED TO PULL THE RED CORD IF SHE NEEDED ANY ASSISTANCE AT ALL, VERBALIZED UNDERSTANDING. DENIES ANY OTHER NEEDS AT THIS TIME, DENIES NEED OF ASSISTANCE.
[2020-10-02 04:00] VITALS: BP 100/59
[2020-10-02 04:58] LABS: ANION GAP 9 (6-22 (CALC)); BUN 8 mg/dL (7-17); BUN/CREATININE RATIO 16 (12-20 (CALC)); CARBON DIOXIDE 24 mmol/l (22-30); CHLORIDE 106 mmol/l (95-108); CREATININE 0.5 mg/dL (0.5-1.0); GFR > 60 ML/MIN (>=60 (CALC)); GFR FOR AFR.AMER. > 60 ML/MIN (>=60 (CALC)); MAGNESIUM 1.7 mg/dL (1.6-2.3); POTASSIUM 3.7 mmol/l (3.5-5.1); SODIUM 136 mmol/l (137-146)
--- NOTE | 2020-10-02 07:00 | NUR ---
RECIEVED REPORT FROM SUSAN LIN
[2020-10-02 07:29] VITALS: BP 117/77
--- NOTE | 2020-10-02 07:29 | NUR ---
PT RESTING IN SEMI FOWLERS POSITION. PT IS A/O X3. ASSESSMENT AND VITALS COMPLETED. BP 117/77, HR 79, O2 98% ON ROOM AIR. RESPIRATIONS ARE EVEN AND UNLABORED WITH NO DISRTESS NOTED. LUNG SOUNDS CLEAR. HEART RYTHM NORMAL WITH TELE IN PLACE. BOWEL SOUNDS ARE ACTIEV, LAST BM 09/28/20. PT STATES THAT IS HER NORMAL. RADIAL PULSES STRONG. PT IS ABOVE KNEE AMPUTE. PT DENEIS OF ANY PAINS OR N/V. #22G IN LFA INFUSING WITH IVF, SITE APPEARS HEALTHY AND PATENT. PT DENIES OF ANY NEEDS AT THIS TIME. ALL SAFETY PRECAUTIONS ARE IN PLACE WITH CALL LIGHT IN REACH. WILL CONTINUE TO MONITOR
--- NOTE | 2020-10-02 08:50 | NUR ---
PT COMPLAINS OF NAUSEA AFTER GETTING OUT OF SHOWER. PHENERGAN ADMINISTERED. PT TOLERATED WELL.
[2020-10-02] MEDS ORDERED: SENOKOT EXTRA17.2 MG PO (09:54)
[2020-10-02] MEDS ORDERED: PHENERGAN25 MG/TAB PO (09:54)
--- NOTE | 2020-10-02 09:55 | NUR ---
DR TRIPLETT AT BEDSIDE
--- NOTE | 2020-10-02 10:14 | NUR ---
PT RESTING IN SEMI FOWLERS PLACE. PT STATES MEDICATION HAS HELPED WITH NAUSE. RESPIRATIONS ARE EVEN AND UNLABORED. PT DENIES OF ANY NEEDS AT THIS TIME.
--- NOTE | 2020-10-02 10:26 | NUR ---
CALL ANTHONY SOUNDED. PT STATES " I NEED MY METHADONE." FISHING TOOL SUPERVISOR INFORMED PT THAT HOSPITAL DID NOT HAVE THE METHADONE AND IT WOULD NEED TO BE BROUGHT FROM HOME PREVIOUSLY DONE. FISHING TOOL SUPERVISOR SUGGESTED COMPLETEING D/C SOON INORDER TO GET METHADONE ONCE ARRIVAL AT HOME. PT VERBALIZED UNDERSTANDING.
[2020-10-02 10:30] VITALS: BP 124/79
--- NOTE | 2020-10-02 10:37 | NUR ---
PT EDUCATED ON D/C INSTRUCTIONS AND NEW MEDICATIONS. PT VERBALIZED UNDERSTANDING.#22G IN LFA REMOVED WTIH CATHATER STILL INTACT.
--- NOTE | 2020-10-02 10:42 | NUR ---
Discharge instructions given. Patient verbalizes understanding of same. Discharged in stable condition via Wheelchair to Home with family. All belongings sent with pt. PT D/C HOME VIA WHEELCHAIR WITH ALL D/C INSTRUCTIONS AND BELONINGS.
== END 2020-10-02 10:42 | disposition home or self-care (01) | DRG 395 ==
LOC: ED 06:56 → ED-I 10:13 → ED 10:36 → MS2 10:37
PROVIDERS: Emergency Medicine; Nurse Practitioner; ADMIT Internal Medicine; ATTEND Internal Medicine
DX: R11.15 Cyclical vomiting syndrome unrelated to migraine (principal); E87.6 Hypokalemia; E83.42 Hypomagnesemia; G89.4 Chronic pain syndrome; K59.00 Constipation, unspecified; G35 Multiple sclerosis; F43.10 Post-traumatic stress disorder, unspecified; F17.200 Nicotine dependence, unspecified, uncomplicated; Z79.891 Long term (current) use of opiate analgesic; Z89.612 Acquired absence of left leg above knee; Z20.822 Contact with and (suspected) exposure to COVID-19
CPT/HCPCS: G0378; J1650; J3475; Q9967; S0164

== ENCOUNTER 2022-05-26 13:27 | Observation (INO) | payer OTHER, MEDICAID ==
[~2022-05-26] VITALS: Ht 162.6 cm; Wt 50.0 kg
[2022-05-26] VITALS (11 sets, daily range): BP systolic 122–152; BP diastolic 70–104
[~2022-05-26 13:27] MED LIST changes: +PHENERGAN25 MG/TAB PO; +SENOKOT EXTRA17.2 MG PO
[2022-05-26 14:26] LABS: BASO% 0.2 % (0-3); EOS% 0.1 % (0-8); IMMATURE GRANULOCYTES 0.2 % (0.0-5.0); LYMPH% 14.9 % (15-41); MEAN CORPUSCULAR HGB 29.1 pG CALC (26.0-32.0); MEAN CORPUSCULAR HGB CONC 33.8 g/dL CAL (32.0-36.0); MONO% 5.2 % (2-13); NEUT# 6.99 thou/uL (2.00-7.15); NEUT% 79.4 % (42-76); RED BLOOD COUNT 4.78 mill/uL (4.20-5.60); RED CELL DISTRI WIDTH 13.6 % (11.5-15.5)
[2022-05-26 14:39] LABS: ALKALINE PHOSPHATASE 116 u/l (38-126); BILIRUBIN, TOTAL 0.7 mg/dL (0.0-1.4); BUN 8 mg/dL (7-17); BUN/CREATININE RATIO 16 (12-20 (CALC)); CARBON DIOXIDE 25 mmol/l (22-30); CHLORIDE 108 mmol/l (95-108); CREATININE 0.5 mg/dL (0.5-1.0); GFR FOR AFR.AMER. > 60 ML/MIN (>=60 (CALC)); GFR OTHER RACES > 60 ML/MIN (>=60 (CALC)); LIPASE 63 u/l (23-300); POTASSIUM 3.5 mmol/l (3.5-5.1); SGOT/AST 35 u/l (14-36)
[2022-05-26 14:40] LABS: ALBUMIN 5.3 g/dL (3.2-5.0); ANION GAP 14 (6-22 (CALC)); SODIUM 143 mmol/l (137-146); TOTAL PROTEIN 8.1 g/dL (6.3-8.2)
[2022-05-26 14:41] LABS: HEMATOCRIT 41.1 % (37.0-47.0); HEMOGLOBIN 13.9 g/dl (12.0-16.0)
[2022-05-26 16:43] LABS: URINE BILIRUBIN - DIPSTICK NEGATIVE (NEGATIVE); URINE BLOOD DIPSTICK NEGATIVE (NEGATIVE); URINE COLOR YELLOW; URINE GLUCOSE - DIPSTICK NEGATIVE (NEGATIVE); URINE KETONE 15 mg/dL (NEGATIVE); URINE LEUK ESTERASE NEGATIVE (NEGATIVE); URINE PROTEIN - DIPSTICK NEGATIVE (NEG-TRACE); URINE SPECIFIC GRAVITY >=1.030; URINE UROBILINOGEN - DIPSTICK 0.2 E.U./dL (0.2)
[2022-05-26 16:47] LABS: URINE NITRITE - DIPSTICK NEGATIVE (Negative)
[2022-05-26] MEDS ORDERED: MORPHINE SUL30 MG PO (21:57)
[2022-05-26] MEDS ORDERED: OXYCODONE30 MG PO (21:58)
[2022-05-26] MEDS ORDERED: ALPRAZOLAM0.5 M2 PO (21:59)
[2022-05-26] MEDS ORDERED: MORPHINE SULFAT15 MG PO (22:01)
[2022-05-27 04:12] VITALS: BP 121/78
[2022-05-27 06:55] VITALS: BP 90/59
[2022-05-27] MEDS ORDERED: ESTRADIOL0.05 MG/24 ID (13:29)
[2022-05-27] MEDS ORDERED: FOLIC ACID1 MG PO (13:29)
[2022-05-27] MEDS ORDERED: PHENERGAN25 MG PO (13:30)
[2022-05-27] MEDS ORDERED: ACETAZOLAMIDE500 MG PO (13:31)
[2022-05-27] MEDS ORDERED: METHOTREXATE S2.5 MG PO (13:33)
== END 2022-05-27 14:39 | disposition home or self-care (01) | DRG 395 ==
LOC: ED 13:27 → ED-I 17:30 → ED 17:45 → MS2 17:46
PROVIDERS: Nurse Practitioner; ADMIT Internal Medicine; ATTEND Internal Medicine
DX: R11.15 Cyclical vomiting syndrome unrelated to migraine (principal); F12.988 Cannabis use, unspecified with other cannabis-induced disorder; F41.9 Anxiety disorder, unspecified; G35 Multiple sclerosis; G89.29 Other chronic pain; E78.5 Hyperlipidemia, unspecified; F17.200 Nicotine dependence, unspecified, uncomplicated; Z86.14 Personal history of Methicillin resistant Staphylococcus aureus infection; Z86.73 Personal history of transient ischemic attack (TIA), and cerebral infarction without residual deficits; Z89.612 Acquired absence of left leg above knee; Z79.891 Long term (current) use of opiate analgesic
CPT/HCPCS: G0378; J1650